=== PATIENT | female | born 1955 | race Caucasian/White ===

== ENCOUNTER → 2017-02-19 | Outpatient (CLI) | payer OTHER ==
[2017-02-19 12:01] LABS: Blood Urea Nitrogen 11 mg/dL (7-17); Non-African American GFR(MDRD) >60 (>60 ml/min/1.73 sqM)
--- NOTE | 2017-02-19 13:52 | CT ---
EXAMINATION TYPE: CT ChestAbdPelvis w con DATE OF EXAM: 02/19/2017 COMPARISON: 11/21/2016 and 11/12/2016 HISTORY: Patient has no complaints at time of service. Follow up study for known lymphoma (ovarian). CT DLP: 1756 mGycm CONTRAST: CT scan of the chest, abdomen and pelvis is performed with Oral Contrast and with IV Contrast, patien t injected with 100 mL of Omnipaque 300. CT Chest: LUNGS: The lungs are clear and free of infiltrate or atelectasis. Calcified granuloma left lower lobe . No pulmonary nodule or mass is detected. No pleural effusion or CT evidence of interstitial lung d isease. MEDIASTINUM: Thoracic aorta is of normal caliber. The heart is not enlarged. No evidence for media stinal mass or adenopathy. HILAR STRUCTURES: No evidence for mass. No hilar adenopathy is appreciated. OTHER: No significant abnormality. CONTRAST CT ABDOMEN AND PELVIS FINDINGS: LIVER/GB: There is evidence of hepatomegaly. Mild hepatic steatosis. No hepatic lesions are demonstra nick. Cholecystectomy clips are identified. PANCREAS: No inflammation. No distinct mass. SPLEEN: Small hypoattenuating lesions within the spleen described on outside examination are not repr oducible at this time. Small splenule is noted. ADRENALS: No nodule. No thickening. KIDNEYS/BLADDER: No hydronephrosis. No nephrolithiasis. No disctinct renal mass. BOWEL: Normal appendix. Normal bowel caliber. No inflammation. Moderately severe sigmoid diverticul osis without diverticulitis at this time. GENITAL ORGANS: No gross abnormality. LYMPH NODES: Epiphrenic adenopathy persists although is much smaller in size with short axis measurem ent of 7 mm versus 1.2 cm. Periportal adenopathy is also improved with short axis measurement of a ly mph node measuring 7.5 mm versus 1.3 cm previously. Lymph node masses within the small bowel mesenter y are significantly improved. Currently the findings appear to be related to underlying fibrosis arredondo navi soft tissue does measure 6.1 x 5.2 cm versus 10.8 x 8.5 cm conglomerate mass seen previously. Add itional smaller adjacent masses are all less than 1 cm on the current study. There is also improvemen t in para-aortic adenopathy with several remaining lymph nodes measuring less than 1 cm versus greate r than 1 cm previously. There is no inguinal adenopathy or iliac chain adenopathy at this time. AORTA: No significant abnormality. OSSEOUS STRUCTURES: No significant abnormality is seen. OTHER: No significant additional abnormality is seen. IMPRESSION: 1. Significant interval improvement in retroperitoneal and mesenteric adenopathy as discussed above. 2. Hepatomegaly with hepatic steatosis. 3. Resolution of previously noted splenic lesions.
== END | disposition home or self-care (01) ==
LOC: RADCTMAIN 11:12
PROVIDERS: ATTEND Internal Medicine Hematology & Oncology
DX: C82.03 Follicular lymphoma grade I, intra-abdominal lymph nodes (principal); R59.9 Enlarged lymph nodes, unspecified; R16.0 Hepatomegaly, not elsewhere classified
CPT/HCPCS: 82565; 84520; 71260; 74177; 36415; Q9967

== ENCOUNTER → 2017-05-12 | Outpatient (CLI) | payer OTHER ==
[2017-05-12 10:55] LABS: Blood Urea Nitrogen 10 mg/dL (7-17); Non-African American GFR(MDRD) >60 (>60 ml/min/1.73 sqM)
== END | disposition home or self-care (01) ==
LOC: LABWHC1 09:59
PROVIDERS: ATTEND Physical Medicine & Rehabilitation
DX: Z01.818 Encounter for other preprocedural examination (principal); M48.062 Spinal stenosis, lumbar region with neurogenic claudication; M43.16 Spondylolisthesis, lumbar region; M47.817 Spondylosis without myelopathy or radiculopathy, lumbosacral region; E11.9 Type 2 diabetes mellitus without complications; K21.9 Gastro-esophageal reflux disease without esophagitis; C85.90 Non-Hodgkin lymphoma, unspecified, unspecified site
CPT/HCPCS: 36415; 82565; 84520

== ENCOUNTER → 2017-08-02 | Outpatient (CLI) | payer OTHER ==
--- NOTE | 2017-08-02 10:33 | PE ---
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 Patient has history of chemotherapy comp leted April 30, 2016. New abnormal CT. TECHNIQUE: Following the intravenous administration of 13.39 mCi of F-18 FDG, whole body images are performed from the skull base to the midthigh. Images are reviewed on the computer in the coronal, a xial, and sagittal planes. Reconstructed rotating images are created on independent workstation and reviewed on the computer. A noncontrast CT is performed in conjunction with the PET scan. SCAN: Subsequent Scan FINDINGS: SKULL BASE AND NECK: No suspicious hypermetabolic uptake is present. CHEST, MEDIASTINUM, AND HILAR REGION: No suspicious hypermetabolic uptake is seen. ABDOMEN AND PELVIS: No suspicious hypermetabolic uptake is present. OSSEOUS STRUCTURES: No suspicious hypermetabolic uptake. OTHER CT: Coronary artery calcification is redemonstrated which is noted marker for coronary artery d isease. Some calcified left hilar lymph nodes are again seen with 1 cm subpleural calcified nodule or granulo ma lateral lung base axial image 101 redemonstrated. Findings are consistent with product of old gran ulomatous disease. Cholecystectomy clips are redemonstrated. Liver is diffusely isodense to slightly hypodense relative to spleen consistent with fatty infiltration. Prominent right hepatic lobe is unchanged from prior st udies. There is persistent abnormal matted soft tissue in the central mesentery axial image 164, this is imp roved in from original CT June 14, 2016 where there was well-defined multiple large lymph nodes. N o suspicious hypermetabolic uptake is seen at this level. There are stable prominent but subcentimete r retroperitoneal lymph nodes without suspicious abnormal hypermetabolic uptake. There are scattered diverticula throughout the colon most prominent in the sigmoid colon. Uterus is surgically absent. There is multilevel spurring in the thoracolumbar spine. There is facet arthropathy lower lumbar leve ls. IMPRESSION: PET CT findings are consistent with successfully treated mesenteric abdominal lymphoma. T here is persistent abnormal soft tissue at this level but no suspicious abnormal hypermetabolic uptak e to suggest active neoplasm.
== END | disposition home or self-care (01) ==
LOC: RADPETMAIN 07:44
PROVIDERS: ATTEND Internal Medicine Hematology & Oncology
DX: C82.03 Follicular lymphoma grade I, intra-abdominal lymph nodes (principal); Z92.21 Personal history of antineoplastic chemotherapy
CPT/HCPCS: 78815; A9552

== ENCOUNTER → 2018-04-30 | Day surgery (SDC) | payer OTHER ==
[~2018-04-30] MED LIST: ALPRAZolam 0.25 MG TAB PO STA; HYDROcodone/APAP 5-325MG 1 EACH TAB PO PRN; HYDROmorphone 1 MG/ML 1 ML SYRINGE IVP STA
[2018-04-30 09:44] LABS: Mean Platelet Volume 7.3; Platelet Count 127 k/uL (150-450)
[2018-04-30 09:47] VITALS: RESP 16; TEMP 98.1
[2018-04-30 09:48] LABS: INR 1.3 (<1.2); Prothrombin Time 12.9 sec (9.0-12.0)
--- NOTE | 2018-04-30 11:41 | US ---
EXAMINATION TYPE: US biopsy liver DATE OF EXAM: 04/30/2018 HISTORY: Abnormal CT dated 04/07/2018. History of lymphoma. Patient is scheduled for colonoscopy. PROCEDURE: Maximal barrier technique was utilized. After informed consent and preprocedural timeout, the skin overlying a suitable path to the liver was localized using ultrasound, the skin was preppe d and draped. Ultrasound was utilized with sterile technique. 15 cc of lidocaine was used for local a nesthesia. Under direct ultrasound guidance, an 18-gauge needle was advanced into the 1 cm right hepatic lobe le arnol and 4 core biopsies were obtained. Hemostasis was achieved. here was no immediate complication and patient remained in stable condition. Postprocedure imaging demonstrates no subcapsular hematom a and air within the lesion at the site of biopsy. Specimen submitted in formalin to Pathology. IMPRESSION: STATUS POST ULTRASOUND GUIDED CORE BIOPSY OF A HYPOECHOIC APPROXIMATELY 1 CM RIGHT HEPATI C LOBE LESION, PATHOLOGY PENDING. PERFORMED BY THE UNDERSIGNED.
[2018-04-30 11:54] LABS: Glucose,Whole Blood 326 mg/dL (75-99)
[2018-04-30 15:06] VITALS: BP 129/60; PULSE 74
== END | disposition home or self-care (01) ==
LOC: RADPROMAIN 08:53
PROVIDERS: ATTEND Internal Medicine Hematology & Oncology
DX: C82.03 Follicular lymphoma grade I, intra-abdominal lymph nodes (principal); K74.60 Unspecified cirrhosis of liver; K75.81 Nonalcoholic steatohepatitis (NASH)
CPT/HCPCS: 85049; 85610; 88313 ×3; 88307; 36415; 47000; 76942; J1170

== ENCOUNTER 2018-05-05 06:44 | Day surgery (SDC) | payer OTHER ==
[2018-05-01 14:44] VITALS: BMI 32.8
[~2018-05-05 06:44] MED LIST changes: -ALPRAZolam 0.25 MG TAB PO STA; -HYDROcodone/APAP 5-325MG 1 EACH TAB PO PRN; -HYDROmorphone 1 MG/ML 1 ML SYRINGE IVP STA; +LACTATED RINGERS 1,000 ML IV SCH; +LIDOCAINE 1% 20 ML VIAL (10MG/ML) FOR IV START INTRADERMA PRN; +MIDAZOLAM (PF) 2 MG/2 ML VIAL IV PRN
[2018-05-05] MEDS ORDERED: LACTATED RINGERS 1,000 ML IV ONE (07:11)
[2018-05-05 07:21] VITALS: TEMP 98
[2018-05-05 07:32] LABS: Glucose,Whole Blood 307 mg/dL (75-99)
[2018-05-05] MEDS ORDERED: INSULIN ASPART 100 UNIT/ML 1 ML 10 ML VIAL SQ ONE ×2 (07:37→07:43)
[2018-05-05] MEDS ORDERED: PROPOFOL 10 MG/ML 20 ML VIAL IV ONE (07:59)
[2018-05-05 08:36] VITALS: RESP 18
--- NOTE | 2018-05-05 08:39 | P.PCN ---
Date of Procedure: 05/05/18 Procedure(s) Performed: Procedure: Total colonoscopy. Preoperative diagnosis: Abnormal CT of the abdomen. Postoperative diagnosis: Sigmoid diverticulosis with no evidence of acute diverticulitis, strictures, significant polyps or cancer. Preparation: HalfLytely prep. Sedation: Was provided by anesthesia Brief clinical history: The patient is a 62-year-old female who is scheduled for this evaluation because of abnormality on the sigmoid noted on computed tomography scan. The patient has history of non-Hodgkin's lymphoma and ovarian cancer and there were 2 new spots on her liver on a recent CT raising the possibility of metastatic liver disease. With the abnormality on the CT a source in the sigmoid colon was considered. The patient had several colonoscopies over the years, the last was around 3 or 4 years ago. She has no new abdominal complaints or bleeding. Procedure: With the patient on her left lateral decubitus position and after informed consent and adequate sedation, the perianal area was inspected and it did not show any fissures or fistulas. There were no masses felt on digital rectal examination. The Olympus CFH 190L videocolonoscope was then inserted in the rectum in the usual fashion and advanced to the cecum. There were a few diverticular orifices seen scattered in the sigmoid but I saw no evidence of acute diverticulitis or strictures. The mucosa appeared healthy. No significant polyps or tumors were seen. I retroflexed the endoscope in the rectum before the endoscope was withdrawn. The patient tolerated the procedure well. Plan: I summarized the findings to the patient. She will follow-up with you as planned. Further plans based on her course.
[2018-05-05 09:04] VITALS: BP 123/64; PULSE 68
[2018-05-05 09:22] LABS: Glucose,Whole Blood 239 mg/dL (75-99)
== END 2018-05-05 09:41 | disposition home or self-care (01) ==
LOC: ORWHC2ENDO 06:44
DX: K57.30 Diverticulosis of large intestine without perforation or abscess without bleeding (principal); R93.2 Abnormal findings on diagnostic imaging of liver and biliary tract; E11.9 Type 2 diabetes mellitus without complications; I48.91 Unspecified atrial fibrillation; E78.5 Hyperlipidemia, unspecified; I10 Essential (primary) hypertension; M06.9 Rheumatoid arthritis, unspecified; E07.9 Disorder of thyroid, unspecified; F32.9 Major depressive disorder, single episode, unspecified; K21.9 Gastro-esophageal reflux disease without esophagitis; Z85.43 Personal history of malignant neoplasm of ovary; Z85.72 Personal history of non-Hodgkin lymphomas; Z79.01 Long term (current) use of anticoagulants; Z79.890 Hormone replacement therapy; Z79.4 Long term (current) use of insulin; Z79.899 Other long term (current) drug therapy; Z88.0 Allergy status to penicillin; Z91.048 Other nonmedicinal substance allergy status; Z88.1 Allergy status to other antibiotic agents; Z96.653 Presence of artificial knee joint, bilateral
CPT/HCPCS: 45378; J2704

== ENCOUNTER → 2018-10-13 | Outpatient (CLI) | payer MEDICARE, OTHER ==
[2018-10-13 14:08] LABS: Blood Urea Nitrogen 16 mg/dL (7-17)
--- NOTE | 2018-10-13 15:24 | CT ---
EXAMINATION TYPE: CT ChestAbdPelvis w con DATE OF EXAM: 10/13/2018 COMPARISON: 04/07/2018 HISTORY: lymphoma, observe for mets CT DLP: 1548.20 mGycm Automated exposure control for dose reduction was used. CONTRAST: CT scan of the chest, abdomen and pelvis is performed with Oral Contrast and with IV Contrast, patien t injected with 100 mL of Isovue 300. FINDINGS: LUNGS: The lungs are grossly clear, there is no concerning parenchymal mass or nodule identified. T here is no pleural effusion or pneumothorax seen. The tracheobronchial tree is patent. Calcified gra nuloma within the left lung is stable. MEDIASTINUM: There are no greater than 1 cm hilar or mediastinal lymph nodes. No pericardial effusi on is seen. Stable calcified lymph nodes in the hilum. No pathologic-sized lymph nodes. Coronary paige ry calcification noted. OTHER: 3 mm left breast nodule. Recommend mammogram.. LIVER/GB: There is reduced in attenuation correlate for hepatic steatosis. Previous cholecystectomy c hanges are noted. No definite intrahepatic lesion. PANCREAS: No significant abnormality is seen. SPLEEN: Accessory spleen noted. ADRENALS: No significant abnormality is seen. KIDNEYS: Tiny hypodensities too small to characterize bilaterally are stable. BOWEL: Bowel gas pattern nonspecific. Changes of diverticulosis noted. LYMPH NODES: The ill-defined attenuation within the mesentery which previously measured 7 x 6.3 cm is stable relative the previous exam. No new adenopathy. Surgical clips are noted. Shotty adenopathy in the gastrohepatic ligament is stable. OSSEOUS STRUCTURES: Hypertrophic and degenerative changes of the vertebral column. Severe facet arthr opathy L4-5 with grade 1 anterolisthesis. Arthropathy of the right shoulder. OTHER: Aorta of normal caliber. No free fluid. Atherosclerotic changes noted. IMPRESSION: 1. Hepatic lesions previously described are not identified on today's exam and likely related to the heterogeneous pattern of the liver which could been the basis of hepatic steatosis correlate with gwen er enzymes to exclude other etiologies. 2. Stability and morphology of the matted central mesenteric lymph nodes that demonstrated no abnorma l uptake on previous PET scan of 08/02/2017.
== END | disposition home or self-care (01) ==
LOC: RADCTMAIN 13:08
PROVIDERS: ATTEND Internal Medicine Hematology & Oncology
DX: Z03.89 Encounter for observation for other suspected diseases and conditions ruled out (principal); C82.03 Follicular lymphoma grade I, intra-abdominal lymph nodes; R10.9 Unspecified abdominal pain; Z88.0 Allergy status to penicillin; Z88.1 Allergy status to other antibiotic agents
CPT/HCPCS: 82565; 84520; 71260; 74177; 36415; Q9967

== ENCOUNTER → 2019-01-15 | Outpatient (CLI) | payer MEDICARE ==
--- NOTE | 2019-01-15 15:43 | CT ---
EXAMINATION TYPE: CT ChestAbdPelvis w con DATE OF EXAM: 01/15/2019 COMPARISON: 10/13/2018 HISTORY: abdominal pain, hx of lymphoma CT DLP: 1790.7 mGycm CONTRAST: CT scan of the chest, abdomen and pelvis is performed with Oral Contrast and with IV Contrast, patien t injected with 100 mL of Isovue 300. CT Chest: LUNGS: The lungs are clear and free of infiltrate or atelectasis. No pulmonary nodule or mass is det ected. Stable calcified granuloma left lower lobe. No pleural effusion or CT evidence of interstitia l lung disease. MEDIASTINUM: Thoracic aorta is of normal caliber. The heart is not enlarged. No evidence for media stinal mass or adenopathy. HILAR STRUCTURES: No evidence for mass. No hilar adenopathy is appreciated. OTHER: No significant abnormality. CONTRAST CT ABDOMEN AND PELVIS FINDINGS: LIVER/GB: No calcified gallstones. No space occupying hepatic lesion. Biliary tree is of normal ca liber. PANCREAS: No inflammation. No distinct mass. SPLEEN: No splenic enlargement. No lesion seen. ADRENALS: No nodule. No thickening. KIDNEYS/BLADDER: No hydronephrosis. No nephrolithiasis. No distinct renal mass. BOWEL: Mild inflammatory change about the sigmoid colon felt to reflect mild diverticulitis without p erforation or abscess. Severe sigmoid diverticulosis noted. GENITAL ORGANS: No gross abnormality. LYMPH NODES: Subcentimeter lymph nodes in the region of the yamileth hepatis are stable. Ill-defined and nodular area of abnormal attenuation within the small bowel mesentery to the right of midline curren tly measures 4.8 x 3.4 cm versus 7.0 x 6.3 cm. AORTA: No significant abnormality. OSSEOUS STRUCTURES: Hypertrophic and degenerative changes of the vertebral column. Severe facet arth ropathy L4-5 with grade 1 anterolisthesis. Arthropathy of the right shoulder. OTHER: No significant additional abnormality is seen. IMPRESSION: 1. Ill-defined and nodular area of abnormal attenuation within the small bowel mesentery to the right of midline currently measures 4.8 x 3.4 cm versus 7.0 x 6.3 cm. 2. Correlate for very mild changes of sigmoid diverticulitis.
== END | disposition home or self-care (01) ==
LOC: RADCTMAIN 13:36
PROVIDERS: ATTEND Internal Medicine Hematology & Oncology
DX: K57.32 Diverticulitis of large intestine without perforation or abscess without bleeding (principal); C82.03 Follicular lymphoma grade I, intra-abdominal lymph nodes; Z88.0 Allergy status to penicillin; Z88.1 Allergy status to other antibiotic agents
CPT/HCPCS: 82565; 84520; 71260; 74177; 36415; Q9967

== ENCOUNTER → 2019-10-15 | Outpatient (CLI) | payer MEDICARE ==
--- NOTE | 2019-10-15 17:14 | CT ---
EXAMINATION TYPE: CT ChestAbdPelvis w con DATE OF EXAM: 10/15/2019 INDICATION: Follow up mesenteric lymphoma, epigastric pain and fullness COMPARISON: 01/21/2019 CT DLP: 1829.9 mGycm CONTRAST: Performed with Oral Contrast and with IV Contrast, patient injected with 100 mL of Isovue 300. TECHNIQUE: Axial images at 5 mm thick sections. Reconstructed images in the coronal plane. Delayed images through the kidneys. FINDINGS: CT CHEST: Portion of the thyroid visualized is small. There is a large calcified 1.2 cm granuloma along the periphery of the left lung base. No suspicious lung nodules are evident. No enlarged mediastinal or hilar adenopathy is evident. Scattered small lymph nodes are within the me diastinum. The ascending aorta diameter at the level of the main pulmonary artery is 3.2 cm. The main pulmonary artery diameter at the bifurcation is 2.[address] ABDOMEN: Liver: Normal Spleen: Small splenule is adjacent to the spleen. Pancreas: Normal Adrenal glands: The adrenal glands are normal. Gallbladder: Surgically absent Kidneys: No masses are evident. No hydronephrosis is present. No cysts are present. Delayed images were obtained through the kidneys, which remain unremarkable. Aorta: Vascular calcification is within the aorta. Inferior vena cava: Normal. CT PELVIS: Fecal debris is throughout the colon. Small bowel loops distended with oral contrast appear normal. S cattered diverticuli are within the sigmoid colon. Appendix: Normal as visualized. Urinary bladder: Normal. Genitourinary structures: Uterus and ovaries are not identified. Osseous structures: No suspicious lytic or sclerotic lesions. Lymphadenopathy: No enlarged mesenteric lymphadenopathy is evident. Small density superior to the morales creatic head is stable there is vague increased density within the mesentery at the pelvic inlet. Ser ies 4 image 77. This area is less consolidated than before. Some underlying adenopathy may be present . The individual lymph nodes are not enlarged in this region. This area measures approximately 4.4 x 3.5 cm. This is smaller than the measurement of 4.8 x 3.4 cm. IMPRESSIONS: 1. Improving density within the mesentery. No suspicious enlarging or new lymphadenopathy is evident.
== END | disposition home or self-care (01) ==
LOC: RADCTMAIN 14:22
PROVIDERS: ATTEND Internal Medicine Hematology & Oncology
DX: K66.8 Other specified disorders of peritoneum (principal); C56.9 Malignant neoplasm of unspecified ovary; C82.03 Follicular lymphoma grade I, intra-abdominal lymph nodes; Z88.0 Allergy status to penicillin; Z88.1 Allergy status to other antibiotic agents
CPT/HCPCS: 82565; 84520; 71260; 74177; 36415; Q9967

== ENCOUNTER → 2019-11-22 | Outpatient (CLI) | payer MEDICARE ==
[2019-11-22 14:34] LABS: HCT 41.4 % (34.0-46.0); HGB 12.9 gm/dL (11.4-16.0); MCH 29.4 pg (25.0-35.0); MCHC 31.2 g/dL (31.0-37.0); MCV 94.2 fL (80.0-100.0); Mean Platelet Volume 7.8; Platelet Count 177 k/uL (150-450); RBC 4.39 m/uL (3.80-5.40); RDW 15.4 % (11.5-15.5); WBC 7.6 k/uL (3.8-10.6)
[2019-11-22 14:47] LABS: Appearance,Urine Clear (Clear); Bacteria,Urine Rare /hpf; Bilirubin,Urine Negative (Negative); Blood,Urine Negative (Negative); Color,Urine Yellow; Glucose,Urine (UA) Negative (Negative); Ketones,Urine Negative (Negative); Leukocyte Esterase,Urine Small (Negative); Mucus,Urine Rare /hpf; Nitrite,Urine Negative (Negative); Protein,Urine Negative (Negative); RBC,Urine <1 /hpf (0-5); Specific Gravity,Urine 1.017 (1.001-1.035); Squamous Epithelial Cell,Urine <1 /hpf (0-4); Urobilinogen,Urine <2.0 mg/dL (<2.0); WBC,Urine 3 /hpf (0-5)
[2019-11-22 21:37] LABS: Cyclic Citrull Pep IgG Unit 0.5 U/mL; Cyclic Citrullinated Pep IgG NEGATIVE (NEGATIVE)
[2019-11-22 21:38] LABS: African American GFR (CKD) 77.2 (60.0-200.0); Albumin 4.5 g/dL (3.80-4.90); Albumin/Globulin Ratio 1.61 (1.60-3.17); Anion Gap 9.2 mmol/L (4.00-12.00); BUN/Creat Ratio 21.11 Ratio (12.00-20.00); C Reactive Protein 0.8 mg/dL (0.0-0.8); Calcium 9.6 mg/dL (8.7-10.3); Carbon Dioxide 32.8 mmol/L (21.6-31.8); Globulin 2.8 g/dL (1.6-3.3); Non-African American GFR(CKD) 66.6 (60.0-200.0); Potassium 4.1 mmol/L (3.5-5.5); Total Bilirubin 0.4 mg/dL (0.3-1.2); Total Protein 7.3 g/dL (6.2-8.2)
[2019-11-22 21:45] LABS: T4, Free (Free Thyroxine) 1.4 ng/dL (0.80-1.80)
[2019-11-22 22:08] LABS: Erythrocyte Sedimentation Rate 41 mm/hr (0-20)
== END | disposition home or self-care (01) ==
LOC: LABWHC1 13:51
PROVIDERS: ATTEND Internal Medicine Rheumatology
DX: M25.50 Pain in unspecified joint (principal); R53.82 Chronic fatigue, unspecified
CPT/HCPCS: 36415; 80053; 81001; 84439; 84443; 85027; 85652; 86038; 86140; 86200; 86431

== ENCOUNTER → 2019-11-22 | Outpatient (CLI) | payer MEDICARE ==
--- NOTE | 2019-11-22 14:54 | XR ---
Lumbosacral spine HISTORY: Low back pain, M 47.896 6 views of lumbosacral spine correlated to CT scan 10/15/2019 There is a mild spinal curvature. Lumbar vertebral bodies show preserved height. There is anterolisth esis grade 1 L4-5, L3-4. May be minimal lessening of listhesis of 1 to 2 mm on extension view. Loss o f disc height present L3-4, L4-5 and L5-S1, there is multilevel spondylosis. Sclerosis present in the posterior elements of the lower lumbar spine. Bone mineralization is reduced. Surgical clips are pre sent in the right upper quadrant. IMPRESSION: Degenerative disc disease, osteopenia, facet arthropathy, spinal curvature.
== END | disposition home or self-care (01) ==
LOC: RADXRMAIN 13:23
PROVIDERS: ATTEND Neurological Surgery
DX: M51.36 Other intervertebral disc degeneration, lumbar region (principal); M85.80 Other specified disorders of bone density and structure, unspecified site; M46.96 Unspecified inflammatory spondylopathy, lumbar region; M43.9 Deforming dorsopathy, unspecified; M25.50 Pain in unspecified joint
CPT/HCPCS: 72110

== ENCOUNTER → 2019-11-24 | Outpatient (CLI) | payer MEDICARE ==
[2019-11-24 12:55] LABS: ABG Base Excess 7.9 mmol/L; ABG HCO3 33 mmol/L (21-25); ABG Oxygen Saturation 93.5 % (94-97); ABG PCO2 51 mmHg (35-45); ABG PH 7.41 (7.35-7.45); ABG PO2 67 mmHg (83-108); ABG TCO2 34 mmol/L (19-24); Allen Test Performed? Yes
== END | disposition home or self-care (01) ==
LOC: LABWHC1 12:28
PROVIDERS: ATTEND Internal Medicine Critical Care Medicine
DX: R06.02 Shortness of breath (principal)
CPT/HCPCS: 36600; 82805

== ENCOUNTER → 2020-05-08 | Outpatient (CLI) | payer MEDICARE ==
--- NOTE | 2020-05-09 08:35 | CT ---
EXAMINATION TYPE: CT ChestAbdPelvis w con DATE OF EXAM: 05/08/2020 COMPARISON: CT October 15, 2019 and older CTs. HISTORY: Follow up for lymphoma diagnosed August 2016 in the mesentery, shortness of breath and epigas tric abdominal pain. Completed chemotherapy in 2018. CT DLP: 2329.1 mGycm. Automated Exposure Control for Dose Reduction was Utilized. CONTRAST: CT scan of the thorax, abdomen and pelvis is performed with IV Contrast, patient injected with 100ml mL of Isovue 300. FINDINGS: LUNGS: Stable 9 mm peripheral left basilar calcified nodule or granuloma at axial image 42. No suspic ious new noncalcified nodules or masses. Stable mild bibasilar linear scarring and/or atelectasis. Th ere is no pleural effusion or pneumothorax seen. The tracheobronchial tree is patent. MEDIASTINUM: There are no greater than 1 cm hilar or mediastinal lymph nodes. No cardiomegaly or pe ricardial effusion is seen. Stable small size thyroid is redemonstrated. Coronary artery calcificati on again seen. LIVER/GB: Cholecystectomy clips redemonstrated. Liver is diffusely low-density consistent with fatty infiltration. Size stable and within normal limits. PANCREAS: No significant abnormality is seen. SPLEEN: Size stable and upper limits of normal. ADRENALS: No significant abnormality is seen. KIDNEYS: Symmetric cortical medullary uptake and excretion without hydronephrosis. BOWEL: Oral contrast reaches level of mid transverse colon. No suspicious small large bowel dilatatio n. Sigmoid colonic diverticula. No CT evidence for acute diverticulitis. GENITAL ORGANS: Uterus surgically absent. LYMPH NODES: Few prominent but subcentimeter lymph nodes throughout the lower abdominal and upper pel pema mesentery just right of midline near axial images 84 through 92 not significantly changed from mo st recent CT. Lianet mesentery with prominent but subcentimeter lymph nodes in the right mid abdomen a xial image 79 show no significant interval change from axial image 77 most recent prior. No new great er than 1 cm lymph nodes are present. Stable prominent but subcentimeter lymph nodes throughout the r etroperitoneum OSSEOUS STRUCTURES: Slight scoliotic curvature with multilevel spurring in the spine. Grade 1 anterol isthesis L4 on L5. OTHER: No significant additional abnormality is seen. IMPRESSION: Stable lianet mesentery and subcentimeter lymph nodes in the abdomen and upper pelvis just right of midline from most recent CT. No new or enlarging lymph nodes noted.
== END | disposition home or self-care (01) ==
LOC: RADCTMAIN 13:47
PROVIDERS: ATTEND Internal Medicine Hematology & Oncology
DX: C82.03 Follicular lymphoma grade I, intra-abdominal lymph nodes (principal); R93.3 Abnormal findings on diagnostic imaging of other parts of digestive tract; Z88.0 Allergy status to penicillin; Z88.1 Allergy status to other antibiotic agents
CPT/HCPCS: 82565; 84520; 71260; 74177; 36415; Q9967

== ENCOUNTER 2020-07-24 10:56 | Observation (INO) | payer MEDICARE ==
--- NOTE | 2020-07-24 11:28 | ED ---
General Adult HPI - General Chief complaint: Shortness of Breath Stated complaint: SOB Time Seen by Provider: 07/24/20 11:13 Source: patient, RN notes reviewed Mode of arrival: ambulatory Limitations: no limitations - History of Present Illness Initial comments: Patient is a pleasant 64-year-old female presenting to the emergency Department with chest discomfort and dyspnea. Patient is somewhat a poor historian and does need to be redirected frequently. Symptoms have been going on for at least one week. Patient has a difficult time describing her chest discomfort. Discomfort is left sternal region. Patient does feel somewhat short of breath. Rare cough. No fevers. Patient does have history of atrial fibrillation. Patient feels somewhat achy throughout. Patient does have lupus. Patient also has history of follicular lymphoma. Patient states this is in remission at this time. Patient states she did fall on her shoulder a few weeks ago. - Related Data Home Medications Medication Instructions Recorded Confirmed Famotidine 20 mg PO HS 04/20/18 07/24/20 Flecainide Acetate [Tambocor] 100 mg PO Q12HR 04/20/18 07/24/20 INSULIN LISPRO (humaLOG) [humaLOG] 20 units SQ AC-TID 04/20/18 07/24/20 Insulin Glargine [Lantus] 50 unit SQ HS 04/20/18 07/24/20 Levothyroxine Sodium [Synthroid] 88 mcg PO DAILY 04/20/18 07/24/20 Losartan Potassium 50 mg PO HS 04/20/18 07/24/20 Rivaroxaban [Xarelto] 20 mg PO DAILY@1700 04/20/18 07/24/20 Venlafaxine HCl ER [Effexor Xr] 37.5 mg PO DAILY 04/20/18 07/24/20 Albuterol Inhaler [Ventolin Hfa 2 puff INHALATION RT-QID PRN 07/24/20 07/24/20 Inhaler] Atorvastatin [Lipitor] 10 mg PO HS 07/24/20 07/24/20 Metoprolol Tartrate [Lopressor] 25 mg PO BID 07/24/20 07/24/20 Multivit-Min/FA/Lycopen/Lutein 1 tab PO W/SUPPER 07/24/20 07/24/20 [Centrum Silver Tablet] Pioglitazone [Actos] 30 mg PO DAILY@1700 07/24/20 07/24/20 Allergies Allergy/AdvReac Type Severity Reaction Status Date / Time Penicillins Allergy Rash/Hives Verified 07/24/20 12:15 Tetracyclines Allergy Rash/Hives Verified 07/24/20 12:15 nickel AdvReac metal taste Verified 07/24/20 12:15 Review of Systems ROS Statement: Those systems with pertinent positive or pertinent negative responses have been documented in the HPI. ROS Other: All systems not noted in ROS Statement are negative. Constitutional: Denies: fever Eyes: Denies: eye pain ENT: Denies: ear pain Respiratory: Reports: as per HPI, dyspnea Cardiovascular: Reports: as per HPI, chest pain Endocrine: Reports: fatigue Gastrointestinal: Denies: abdominal pain Genitourinary: Denies: dysuria Musculoskeletal: Reports: back pain (Chronic and unchanged) Skin: Denies: rash Neurological: Denies: weakness Past Medical History Past Medical History: Atrial Fibrillation, COPD, Diabetes Mellitus, Hyperlipidemia, Hypertension Additional Past Medical History / Comment(s): hx ovarian cancer and leukemia, non-hodgkins lymphoma "2 spots of liver" hx elevated liver, enzymes, lupus, back pain History of Any Multi-Drug Resistant Organisms: None Reported Past Surgical History: Orthopedic Surgery Additional Past Surgical History / Comment(s): lokesh knee replacement, carpal tunnel lokesh, lokesh. breast reduction to remove cyst, lt shoulder repair Past Anesthesia/Blood Transfusion Reactions: No Reported Reaction Additional Past Anesthesia/Blood Transfusion Reaction / Comment(s): hx: blood transfusions no reaction Past Psychological History: Depression Smoking Status: Never smoker Past Alcohol Use History: Rare Past Drug Use History: None Reported - Past Family History Mother Family Medical History: No Reported History General Exam Limitations: no limitations General appearance: alert, in no apparent distress Head exam: Present: normocephalic Eye exam: Present: normal appearance Neck exam: Present: normal inspection Respiratory exam: Present: normal lung sounds bilaterally, chest wall tenderness (Mild tenderness anterior chest) Cardiovascular Exam: Present: regular rate, normal rhythm Expanded Peripheral pulses: 2+: Radial (R), Radial (L), Posterior Tibialis (R), Posterior Tibialis (L) GI/Abdominal exam: Present: soft. Absent: tenderness Extremities exam: Present: normal inspection. Absent: pedal edema, calf tenderness Neurological exam: Present: alert Psychiatric exam: Present: normal affect, normal mood Skin exam: Present: normal color Course Vital Signs 07/24/20 07/24/20 11:07 11:46 Temperature 98.1 F Pulse Rate 75 Respiratory 18 18 Rate Blood Pressure 110/55 O2 Sat by Pulse 95 Oximetry EKG Findings - EKG Comments: EKG Findings:: Normal sinus rhythm 78. W[place] 188. Every ROS 102. QT 376. QTc 428. Normal axis. Normal QRS. No acute ST change. Medical Decision Making - Medical Decision Making Patient reevaluated and resting comfortably in bed. Patient requests Tylenol for headache or patient states she also did strike her head when she fell a couple of weeks ago. Head CT was done and reported as no acute abnormality. Patient and family updated on results and plan. Case was discussed in detail with Dr. Grant, will admit covering for Dr. Campa. - Lab Data Result diagrams: 07/24/20 11:22 07/24/20 11:22 Lab Results 07/24/20 07/24/20 07/24/20 Range/Units 11:22 11:22 11:22 WBC 6.8 (3.8-10.6) k/uL RBC 4.47 (3.80-5.40) m/uL Hgb 13.8 (11.4-16.0) gm/dL Hct 42.3 (34.0-46.0) % MCV 94.5 (80.0-100.0) fL MCH 30.8 (25.0-35.0) pg MCHC 32.7 (31.0-37.0) g/dL RDW 13.9 (11.5-15.5) % Plt Count 196 (150-450) k/uL MPV 6.9 Neutrophils % 70 % Lymphocytes % 17 % Monocytes % 6 % Eosinophils % 3 % Basophils % 1 % Neutrophils # 4.8 (1.3-7.7) k/uL Lymphocytes # 1.1 (1.0-4.8) k/uL Monocytes # 0.4 (0-1.0) k/uL Eosinophils # 0.2 (0-0.7) k/uL Basophils # 0.0 (0-0.2) k/uL PT 11.0 (9.0-12.0) sec INR 1.0 (<1.2) APTT 31.6 H (22.0-30.0) sec D-Dimer 0.34 (<0.60) mg/L FEU Sodium 138 (137-145) mmol/L Potassium 4.0 (3.5-5.1) mmol/L Chloride 96 L (98-107) mmol/L Carbon Dioxide 36 H (22-30) mmol/L Anion Gap 6 mmol/L BUN 22 H (7-17) mg/dL Creatinine 0.71 (0.52-1.04) mg/dL Est GFR (CKD-EPI)AfAm >90 (>60 ml/min/1.73 sqM) Est GFR (CKD-EPI)NonAf 89 (>60 ml/min/1.73 sqM) Glucose 142 H (74-99) mg/dL Plasma Lactic Acid Isaac (0.7-2.0) mmol/L Calcium 9.6 (8.4-10.2) mg/dL Magnesium 1.7 (1.6-2.3) mg/dL Total Bilirubin 0.6 (0.2-1.3) mg/dL AST 26 (14-36) U/L ALT 33 (4-34) U/L Alkaline Phosphatase 105 (38-126) U/L Creatine Kinase 39 (30-135) U/L Troponin I (0.000-0.034) ng/mL NT-Pro-B Natriuret Pep pg/mL Total Protein 7.1 (6.3-8.2) g/dL Albumin 4.0 (3.5-5.0) g/dL Coronavirus (PCR) (Not Detectd) 07/24/20 07/24/20 07/24/20 Range/Units 11:22 11:22 11:22 WBC (3.8-10.6) k/uL RBC (3.80-5.40) m/uL Hgb (11.4-16.0) gm/dL Hct (34.0-46.0) % MCV (80.0-100.0) fL MCH (25.0-35.0) pg MCHC (31.0-37.0) g/dL RDW (11.5-15.5) % Plt Count (150-450) k/uL MPV Neutrophils % % Lymphocytes % % Monocytes % % Eosinophils % % Basophils % % Neutrophils # (1.3-7.7) k/uL Lymphocytes # (1.0-4.8) k/uL Monocytes # (0-1.0) k/uL Eosinophils # (0-0.7) k/uL Basophils # (0-0.2) k/uL PT (9.0-12.0) sec INR (<1.2) APTT (22.0-30.0) sec D-Dimer (<0.60) mg/L FEU Sodium (137-145) mmol/L Potassium (3.5-5.1) mmol/L Chloride (98-107) mmol/L Carbon Dioxide (22-30) mmol/L Anion Gap mmol/L BUN (7-17) mg/dL Creatinine (0.52-1.04) mg/dL Est GFR (CKD-EPI)AfAm (>60 ml/min/1.73 sqM) Est GFR (CKD-EPI)NonAf (>60 ml/min/1.73 sqM) Glucose (74-99) mg/dL Plasma Lactic Acid Isaac 1.1 (0.7-2.0) mmol/L Calcium (8.4-10.2) mg/dL Magnesium (1.6-2.3) mg/dL Total Bilirubin (0.2-1.3) mg/dL AST (14-36) U/L ALT (4-34) U/L Alkaline Phosphatase (38-126) U/L Creatine Kinase (30-135) U/L Troponin I <0.012 (0.000-0.034) ng/mL NT-Pro-B Natriuret Pep 96 pg/mL Total Protein (6.3-8.2) g/dL Albumin (3.5-5.0) g/dL Coronavirus (PCR) (Not Detectd) 07/24/20 Range/Units 11:36 WBC (3.8-10.6) k/uL RBC (3.80-5.40) m/uL Hgb (11.4-16.0) gm/dL Hct (34.0-46.0) % MCV (80.0-100.0) fL MCH (25.0-35.0) pg MCHC (31.0-37.0) g/dL RDW (11.5-15.5) % Plt Count (150-450) k/uL MPV Neutrophils % % Lymphocytes % % Monocytes % % Eosinophils % % Basophils % % Neutrophils # (1.3-7.7) k/uL Lymphocytes # (1.0-4.8) k/uL Monocytes # (0-1.0) k/uL Eosinophils # (0-0.7) k/uL Basophils # (0-0.2) k/uL PT (9.0-12.0) sec INR (<1.2) APTT (22.0-30.0) sec D-Dimer (<0.60) mg/L FEU Sodium (137-145) mmol/L Potassium (3.5-5.1) mmol/L Chloride (98-107) mmol/L Carbon Dioxide (22-30) mmol/L Anion Gap mmol/L BUN (7-17) mg/dL Creatinine (0.52-1.04) mg/dL Est GFR (CKD-EPI)AfAm (>60 ml/min/1.73 sqM) Est GFR (CKD-EPI)NonAf (>60 ml/min/1.73 sqM) Glucose (74-99) mg/dL Plasma Lactic Acid Isaac (0.7-2.0) mmol/L Calcium (8.4-10.2) mg/dL Magnesium (1.6-2.3) mg/dL Total Bilirubin (0.2-1.3) mg/dL AST (14-36) U/L ALT (4-34) U/L Alkaline Phosphatase (38-126) U/L Creatine Kinase (30-135) U/L Troponin I (0.000-0.034) ng/mL NT-Pro-B Natriuret Pep pg/mL Total Protein (6.3-8.2) g/dL Albumin (3.5-5.0) g/dL Coronavirus (PCR) Not Detected (Not Detectd) - Radiology Data Radiology results: report reviewed (Computed tomography scan of the brain reveals no acute process), image reviewed (Chest x-ray shows some cardiac megaly. No acute process otherwise) Disposition Clinical Impression: Chest pain, Dyspnea Disposition: ADMITTED IP TO THIS HOSP Is patient prescribed a controlled substance at d/c from ED?: No Referrals: Katarzyna Roger MD [Primary Care Provider] - 1-2 days Decision Time: 13:33
[2020-07-24 11:58] LABS: Basophils % (A) 1 %; Eosinophils # (A) 0.2 k/uL (0-0.7); Eosinophils % (A) 3 %; HCT 42.3 % (34.0-46.0); HGB 13.8 gm/dL (11.4-16.0); Lymphocytes # (A) 1.1 k/uL (1.0-4.8); Lymphocytes % (A) 17 %; MCH 30.8 pg (25.0-35.0); MCHC 32.7 g/dL (31.0-37.0); MCV 94.5 fL (80.0-100.0); Mean Platelet Volume 6.9; Monocytes # (A) 0.4 k/uL (0-1.0); Monocytes % (A) 6 %; Neutrophils # (A) 4.8 k/uL (1.3-7.7); Neutrophils % (A) 70 %; Platelet Count 196 k/uL (150-450); RBC 4.47 m/uL (3.80-5.40); RDW 13.9 % (11.5-15.5); WBC 6.8 k/uL (3.8-10.6)
--- NOTE | 2020-07-24 12:01 | XR ---
EXAMINATION TYPE: XR chest 2V DATE OF EXAM: 07/24/2020 COMPARISON: Chest CT May 08, 2020 HISTORY: History of lymphoma with difficulty breathing. TECHNIQUE: Frontal and lateral views of the chest are obtained. FINDINGS: There is no suspicious new focal air space opacity, pleural effusion, or pneumothorax seen . The cardiac silhouette size is stable and enlarged. Calcified nodule or granuloma peripheral left lung base redemonstrated. Multilevel spurring in the spine. IMPRESSION: Cardiomegaly without acute pulmonary process.
[2020-07-24 12:05] LABS: ALT 33 U/L (4-34); AST 26 U/L (14-36); African American GFR (CKD) >90 (>60 ml/min/1.73 sqM); Alkaline Phosphatase 105 U/L (38-126); Anion Gap 6 mmol/L; Blood Urea Nitrogen 22 mg/dL (7-17); Calcium 9.6 mg/dL (8.4-10.2); Carbon Dioxide 36 mmol/L (22-30); Chloride 96 mmol/L (98-107); Creatine Kinase 39 U/L (30-135); Glucose 142 mg/dL (74-99); Magnesium 1.7 mg/dL (1.6-2.3); Non-African American GFR(CKD) 89 (>60 ml/min/1.73 sqM); Sodium 138 mmol/L (137-145); Total Bilirubin 0.6 mg/dL (0.2-1.3); Total Protein 7.1 g/dL (6.3-8.2)
--- NOTE | 2020-07-24 12:06 | CT ---
EXAMINATION TYPE: CT brain wo con DATE OF EXAM: 07/24/2020 COMPARISON: None HISTORY: 64-year-old female head injury, trauma 2 days ago with weakness. TECHNIQUE: Examination was done in axial plane without intravenous contrast. Coronal and sagittal r econstructions performed. CT DLP: 1173.4 mGycm Automated exposure control for dose reduction was used. FINDINGS: There is no evidence of acute intracranial hemorrhage, acute ischemic changes, mass, mass-effect, or extra-axial fluid collection. There is no effacement of cerebral sulci or basal subarachnoid cister ns. There is no hydrocephalus. There is no midline shift. Carrasco-white matter distinction is preserv ed. Paranasal sinuses and mastoid air cells are well-pneumatized. Orbits and globes are intact. No calvar ial fracture. IMPRESSION: No acute intracranial abnormality seen.
[2020-07-24 12:10] LABS: D-Dimer 0.34 mg/L FEU (<0.60); Partial Thromboplastin Time 31.6 sec (22.0-30.0)
[2020-07-24] MEDS ORDERED: ACETAMINOPHEN TAB 500 MG TAB PO STA (13:32)
[2020-07-24] MEDS ORDERED: ASPIRIN 81 MG PO STA (13:33)
[2020-07-24] MEDS ORDERED: NITROGLYCERIN SL TABS 0.4 MG TAB SUBLINGUAL PRN (13:33)
[2020-07-24] MEDS ORDERED: ALBUTEROL NEBULIZED 2.5 MG/3 ML INHALATION PRN (15:13)
--- NOTE | 2020-07-24 15:14 | P.CNPUL ---
History of Present Illness Consult date: 07/24/20 Reason for consult: dyspnea History of present illness: very pleasant 64-year-old female patient, has multiple medical problems and comorbidities. 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 She has a low-grade B cell lymphoma, non-Hodgkin's lymphoma that was treated through Dr. Stallings and the patient is in complete remission for now. She also has chronic arthritis and she is under investigation for rheumatologic disorder. She has diagnosed having Sjogren's disease. There is a possibility that she may also lupus. She is seeing Dr. Monk in that regards. Other comorbidities include diabetes mellitus, diabetic retinopathy, hypertension, hyperlipidemia, and chronic back pain in addition to chronic atrial fibrillation. She has mild intermittent bronchial asthma for which she uses Ventolin on an as-needed basis. She is obese and she has gained a lot of weight over the years. Roughly, she has gained approximately 40 pounds. She is having shortness of breath with activity. Sometimes walking half a block would make her short of breath. No significant cough or sputum. No chest pain. No pleurisy or hemoptysis. Her resting pulse ox is ranging between 91-93% and this was confirmed today. Upon taking. Deep breaths, the patient is able to build up her oxygen levels up to 97-98%. She is a lifetime nonsmoker. A CAT scan of the chest abdomen and pelvis that was done on 10/15/2019 as part of her lymphoma workup showed no acute abnormalities in the lungs and there is no evidence of pneumonia or pleural effusion or lung collapse. There is a calcified granuloma in the left lower lobe which has no clinical implication and is a old chronic finding. The patient has undergone a spirometry at her primary care physician's office and this was done on 06/29/2019. Based on the spirometry, the patient is restricted with a FEV1 over FVC ratio of 70 and an FVC of 45% of predicted. The patient has been trialed on various inhalers including Spiriva and other long- acting inhalers such as Advair without any much benefit. No history of any DVTs. No swelling in lower extremities. The patient came into the emergency department because of chest discomfort and shortness of breath. Her symptoms of been going on for the past 1 week. She has difficulties describing her chest discomfort and she started to be on her left sternal chest area and she had some limited shortness of breath. The patient will wake up in the middle of the night because of shortness of breath. Unable to lay down flat. She does have typical features otherwise and I discussed it with her in the past. She has taken several steroid chest to her back and shoulder which made her gain weight over the years. She has no CPAP or BiPAP or any other form of positive pressure ventilator at home. She does have oxygen at home. No cough. No fever. No chills. No sputum production. No pleurisy. No hemoptysis. She had a fall also on her shoulder approximately a week ago. In the ED, the was a 6.8 with hemoglobin 15.8 and the platelet count of 196, coagulation profile is within normal, blood gases was done that sh owed a pH of 7.41 with a pCO2 of 51 and pO2 of 67. The patient has chronic metabolic alkalosis with a right common level of 36, sodium was 138 with a potassium of 4, BUN was 20 with a creatinine of 0.7, LFTs were within normal limits, troponin 2 was negative, proBNP level was 96, total protein was 7.4 with an albumin of. The chest x-ray was within normal limits and there was cardiomegaly. The chest x-ray was reviewed. CAT scan of the brain showed no acute intracranial abnormalities. Review of Systems Comprehensive General Adult ROS Reported by Patient Constitutional * Constitutional: no fever, no night sweats, no significant weight loss, no exercise intolerance, weight gain (40lbs) (fatigue and increased sleepiness.) Eyes * Eyes: no dry eyes, no irritation, vision change ENMT * Ears: no difficulty hearing, no ear pain * Nose: no frequent nosebleeds, no nose problems, no sinus problems * Mouth/Throat: no sore throat, no bleeding gums, no snoring, no dry mouth, no mouth ulcers, no oral abnormalities, no teeth problems Cardiovascular * Cardiovascular: no chest pain, no arm pain on exertion, no shortness of breath when lying down, no palpitations, no known heart murmur, shortness of breath when walking (chronic atrial fibrillation) Respiratory * Respiratory: no cough, no wheezing, no coughing up blood, no sleep apnea, s hortness of breath Gastrointestinal * Gastrointestinal: no abdominal pain, no nausea, no vomiting, no constipation, normal appetite, no diarrhea, not vomiting blood, no dyspepsia, no GERD Genitourinary * Genitourinary: no incontinence, no difficulty urinating, no hematuria, no increased frequency Musculoskeletal * Musculoskeletal: no muscle aches, no muscle weakness, no swelling in the extre mities, arthralgias/joint pain, back pain Integumentary * Skin: no abnormal mole, no jaundice, no rashes, no laceration Neurologic * Neurologic: no loss of consciousness, no weakness, no numbness, no seizures, no dizziness, no migraines, no headaches, no tremor Psychiatric * Psych: no sleep disturbances, feeling safe in a relationship, no alcohol abuse, no anxiety, no hallucinations, no suicidal thoughts, depression Endocrine * Endocrine: fatigue Hematologic/Lymphatic * Hematologic/Lymphatic no swollen glands, no bruising, no excessive bleeding Allergic/Immunologic * Allergy/Immunologic: no runny nose, no sinus pressure, no itching, no hives, no frequent sneezing Constitutional: Reports daytime sleepiness, Reports fatigue, Reports weakness Eyes: denies as per HPI, denies blurred vision, denies bulging eye, denies decreased vision, denies diplopia, denies discharge, denies dry eye, denies irritation, denies itching, denies pain, denies photophobia, denies loss of peripheral vision, denies loss of vision, denies tunnel vision/blind spots Ears: deny: decreased hearing, ear discharge, earache, tinnitus Ears, nose, mouth and throat: Denies headache, Denies sore throat Breasts: absent: as per HPI, change in shape, gynecomastia, masses, nipple disch arge, pain, skin changes, swelling Cardiovascular: Reports decreased exercise tolerance, Reports dyspnea on exertion Respiratory: Reports dyspnea, Reports snoring Gastrointestinal: Reports as per HPI Genitourinary: Reports as per HPI Menstruation: Reports as per HPI Musculoskeletal: Reports as per HPI, Reports low back pain Musculoskeletal: absent: ankle pain, ankle stiffness, ankle swelling Integumentary: Reports as per HPI Neurological: Reports as per HPI Psychiatric: Reports as per HPI Endocrine: Reports as per HPI, Reports fatigue Hematologic/Lymphatic: Reports as per HPI Allergic/Immunologic: Reports as per HPI Past Medical History Past Medical History: Atrial Fibrillation, COPD, Diabetes Mellitus, Hyperlipidemia, Hypertension Additional Past Medical History / Comment(s): Past medical history is positive for Pereyra catheter low-grade B-cell lymphoma, hypothyroidism, diabetes mellitus, hyperlipidemia, obesity, depression, diabetes mellitus with retinopathy, hypertension, chronic atrial fibrillation, bronchial asthma, acid reflux, chronic back pain, inflammatory rotator cuff tendon and lumbar spondylolisthesis, questionable lupus History of Any Multi-Drug Resistant Organisms: None Reported Past Surgical History: Orthopedic Surgery Additional Past Surgical History / Comment(s): Past surgical history includes arthroscopic shoulder surgery, lumpectomy on the right, Without release bilaterally, knee surgery 2010 2014, hysterectomy in 2018, cholecystectomy 1998 Past Anesthesia/Blood Transfusion Reactions: No Reported Reaction Additional Past Anesthesia/Blood Transfusion Reaction / Comment(s): hx: blood transfusions no reaction Past Psychological History: Depression Smoking Status: Never smoker Past Alcohol Use History: Rare Past Drug Use History: None Reported - Past Family History Mother Family Medical History: No Reported History Medications and Allergies Home Medications Medication Instructions Recorded Confirmed Type Famotidine 20 mg PO HS 04/20/18 07/24/20 History Flecainide Acetate [Tambocor] 100 mg PO Q12HR 04/20/18 07/24/20 History INSULIN LISPRO (humaLOG) [humaLOG] 20 units SQ AC-TID 04/20/18 07/24/20 History Insulin Glargine [Lantus] 50 unit SQ HS 04/20/18 07/24/20 History Levothyroxine Sodium [Synthroid] 88 mcg PO DAILY 04/20/18 07/24/20 History Losartan Potassium 50 mg PO HS 04/20/18 07/24/20 History Rivaroxaban [Xarelto] 20 mg PO DAILY@1700 04/20/18 07/24/20 History Venlafaxine HCl ER [Effexor Xr] 37.5 mg PO DAILY 04/20/18 07/24/20 History Albuterol Inhaler [Ventolin Hfa 2 puff INHALATION RT-QID PRN 07/24/20 07/24/20 History Inhaler] Atorvastatin [Lipitor] 10 mg PO HS 07/24/20 07/24/20 History Metoprolol Tartrate [Lopressor] 25 mg PO BID 07/24/20 07/24/20 History Multivit-Min/FA/Lycopen/Lutein 1 tab PO W/SUPPER 07/24/20 07/24/20 History [Centrum Silver Tablet] Pioglitazone [Actos] 30 mg PO DAILY@1700 07/24/20 07/24/20 History Allergies Allergy/AdvReac Type Severity Reaction Status Date / Time Penicillins Allergy Rash/Hives Verified 07/24/20 12:15 Tetracyclines Allergy Rash/Hives Verified 07/24/20 12:15 nickel AdvReac metal taste Verified 07/24/20 12:15 Physical Exam Vitals: Vital Signs Temp Pulse Resp BP Pulse Ox 07/24/20 13:42 77 20 123/58 99 07/24/20 11:46 18 07/24/20 11:07 98.1 F 75 18 110/55 95 Intake and Output 07/23/20 07/24/20 07/24/20 22:59 06:59 14:59 Other: Weight 86.183 kg * General Appearance no diaphoresis, no respiratory distress, speech not interrupted by breaths, no dyspnea, no pallor, not cachectic, well nourished, appears well, obesity * HEENT no pursed lip breathing, no jugular venous distention, no mucous membrane cyanosis, no perioral cyanosis, Mallampati Classification: Class 4 * Chest no barrel chest, no retractions, no sternocleidomastoid muscle contractions, no supraclavicular retractions, no intercostal retractions, no prolonged expiratory wheezing, no decreased air movement, no rhonchi, no hyperinflation, (normal) adventitious sounds: rales / crackles: bilaterally: midlung kirby * Heart no right ventricular heave, no distant heart sounds, no s3 gallop, (normal) jugular vein: jugular venous distention: by 0cm, (normal) jugular vein, irregular heart rhythm: totally irregular * GI bowel sounds: hyperactive (borborygmi), bowel sounds: diminished or absent * Extremities no cyanosis, no clubbing, no edema * Neurologic no decreased mental status, no somnolence, no confusion * Assisstive Devices: ambulates with no assitive devices * Gait and Mobility: gait WNL, full weight bearing Results - Laboratory Findings CBC and BMP: 07/24/20 11:22 07/24/20 11:22 PT/INR, D-dimer PT 11.0 sec (9.0-12.0) 07/24/20 11:22 INR 1.0 (<1.2) 07/24/20 11:22 D-Dimer 0.34 mg/L FEU (<0.60) 07/24/20 11:22 Abnormal lab findings: Abnormal Labs 07/24/20 07/24/20 11:22 11:22 APTT 31.6 H Chloride 96 L Carbon Dioxide 36 H BUN 22 H Glucose 142 H - Diagnostic Findings Chest x-ray: image reviewed Assessment and Plan Plan: 1 dyspnea/chest pain under investigation. Terms of shortness of breath, the patient this has chronic and the patient is obese and has chronic obesity hypoventilation syndrome. She does have history of asthma which is currently inactive in stable and chest x-ray is not showing any acute abnormalities. Cardiac enzymes are negative. ProBNP level is negative. Patient is afebrile. No signs of any infection. My understanding is that the patient is being admitted to make sure there is no underlying cardiac event and she is going to observation to be seen by cardiology. 2 chronic dyspnea, class III with chronic hypoxic and hypercapnic respiratory failure. The patient is a chronic CO2 retainer and based on previous blood gases she has a pCO2 in the 50 range with secondary metabolic alkalosis. She has gained significant amount of weight and she has features of JULIET and obesity hypoventilation syndrome and her resting pulse ox ranges typically between 91- 93%. 3 obesity, with ongoing weight related to chronic steroid use 4 chronic bronchial asthma mild intermittent in nature and using Proair on an as-needed basis 5 chronic atrial fibrillation, currently in a sinus rhythm. 6 chronic back pain 7 diabetes mellitus type 2, currently on Lantus and utilizes Humalog on an as- needed basis per scale 8 non-Hodgkin's lymphoma, low-grade lymphoma and the patient has been in remission 9 chronic hypertension 10 hyperlipidemia 11. Questionable lupus 12 . Depression Plan Follow the pulmonary standpoint, the patient is stable. Her breathing status is stable. I would like to do an outpatient sleep study and this patient for a BiPAP order AVAPS unit which would help her with chronic hypoxic and hypercapnic respiratory failure. A based on echocardiogram will be ordered. Cardiology consultation is pending. Resume home medication. Add thyroid function tests. We'll continue to follow.
[2020-07-24 16:51] LABS: Glucose,Whole Blood 146 mg/dL (75-99)
[2020-07-24] MEDS ORDERED: RIVAROXABAN 20 MG TAB PO SCH (17:00)
[2020-07-24] MEDS ORDERED: PIOGLITAZONE 30 MG TAB PO SCH (17:00)
[2020-07-24] MEDS ORDERED: ALPRAZolam 0.25 MG TAB PO PRN (17:05)
[2020-07-24] MEDS ORDERED: MULTIVITAMINS, THERA 1 EACH TAB PO SCH (17:30)
--- NOTE | 2020-07-24 18:12 | HP ---
HISTORY AND PHYSICAL DATE OF SERVICE: 07/24/2020 CHIEF COMPLAINT: Shortness of breath. HISTORY OF PRESENT ILLNESS: This 64-year-old woman with a past medical history of multiple medical problems, including history of atrial fibrillation, asthma, history of diabetes mellitus, GERD, hypertension, hyperlipidemia, history of liver disease, being followed by Dr. Roger in the outpatient setting, was not feeling well for the past several days. The patient apparently had a head cold and patient was treated with some steroids. The patient was gaining weight. The patient is also complaining of some chest discomfort which is described as a funny feeling in the anterior part of chest which is on and off in the substernal and more towards the left side of the chest. Because of the multiple medical issues, the patient came to [facility] and was admitted for further evaluation. The patient also has a history of atrial fibrillation. Cardiology has seen the patient also. Evaluation by Dr. Echevarria is in progress at this time. Initial troponins are negative. COVID-19 is also negative. Initial EKG showed low voltages; otherwise nonspecific ST-T changes. No fever, no history of any contact with COVID-19 at this time. PAST MEDICAL HISTORY: History of asthma, atrial fibrillation, history of diabetes mellitus, history of GERD, hypertension, hyperlipidemia. MEDICATIONS: Lipitor, Ventolin, Xarelto, Effexor, Lopressor, losartan, Synthroid, Lantus, Humalog, Tambocor, Pepcid, Actos, multivitamins. Doses are reviewed. ALLERGIES: PENICILLIN AND TETRACYCLINE AND NICKEL. FAMILY HISTORY: Diabetes mellitus in the family. SOCIAL HISTORY: No history of smoking. Occasional alcohol intake. REVIEW OF SYSTEMS: ENT: No diminished hearing. No diminished vision. CARDIOVASCULAR SYSTEM: As mentioned earlier. RESPIRATORY SYSTEM: As mentioned earlier. GI: No nausea, vomiting. : No dysuria or retention. NERVOUS SYSTEM: No numbness, weakness. ALLERGY/IMMUNOLOGY: History of asthma. MUSCULOSKELETAL: As mentioned earlier. HEMATOLOGY/ONCOLOGY: No history of anemia. ENDOCRINE: Diabetes mellitus. CONSTITUTIONAL: As mentioned earlier. DERMATOLOGY: Negative. RHEUMATOLOGY: Negative. PSYCHIATRY: As mentioned earlier. PHYSICAL EXAMINATION: Patient is alert, oriented x3. Pulse 75, blood pressure 152/82, respiration 18, temperature 97.6, pulse ox 98% on 2 L. HEENT: Conjunctivae normal. NECK: No jugular venous distention. No carotid bruit. No lymph node enlargement. Neck is obese. CARDIOVASCULAR SYSTEM: S1, S2 muffled. No S3. No S4. RESPIRATORY SYSTEM: Breath sounds diminished at the bases. A few scattered rhonchi. No crackles. ABDOMEN: Soft, non-tender. No mass palpable. LEGS: No edema. No swelling. NERVOUS SYSTEM: Higher functions as mentioned earlier. Moves all 4 limbs. No focal motor or sensory deficit. LYMPHATICS: No lymph node palpable in neck, axillae or groin. SKIN: No ulcer, rash, bleeding. JOINTS: No active deforming arthropathy. LABS: CBC within normal limits. Sodium 138, potassium 4. Glucose 142. Troponins are noted. EKG noted. Chest x-ray noted. ASSESSMENT: 1. Chest pain for evaluation; possible unstable angina. 2. Shortness of breath; possible acute bronchial asthma, acute exacerbation. 3. History of recent acute purulent tracheobronchitis. 4. Chronic atrial fibrillation. 5. History of diabetes mellitus, type 2. 6. Gastroesophageal reflux disease. 7. Hypertension. 8. Hyperlipidemia. 9. Liver disease. 10.History of degenerative joint disease. 11.History of pneumonia. 12.Rheumatoid arthritis. 13.History of leukemia, treated with Gleevec. 14.History of Hodgkin's and lymphoma. 15.History of ovarian cancer with surgery only. 16.History of bilateral peripheral neuropathy. 17.History of bilateral diabetic retinopathy. 18.History of lupus. 19.History of Sjogren's. 20.History of chronic low back pain. 21.History of falls. 22.Gait dysfunction. 23.History of breast surgery. 24.History of cholecystectomy. 25.History of depression. 26.Obesity with body mass index of 38.4. RECOMMENDATIONS AND DISCUSSION: In this 64-year-old woman who presented with multiple complex medical issues, we will monitor the patient closely, continue the current medications, continue symptomatic treatment. Otherwise at this time, rule out myocardial infarction. Cardiology consultation. Pulmonary consultation. Otherwise, resume the home medications. TSH is being ordered. Two-D echo has also been ordered. Overall prognosis is guarded because of multiple complex medical issues. Further recommendations to follow. A copy of this dictation is being forwarded to Dr. Roger, who is the primary physician. MMODL / IJN: [id number] /
[2020-07-24] MEDS: INSULIN ASPART (NovoLOG) 100 UNIT/ML VIAL SQ SCH (18:13)
[2020-07-24 20:18] LABS: Glucose,Whole Blood 110 mg/dL (75-99)
[2020-07-24] MEDS ORDERED: LOSARTAN 50 MG TAB PO SCH (21:00)
[2020-07-24] MEDS ORDERED: FAMOTIDINE 20 MG TAB PO SCH (21:00)
[2020-07-24] MEDS ORDERED: INSULIN DETEMIR (LEVEMIR) 100 UNIT/ML SYR SQ SCH (21:00)
[2020-07-24] MEDS ORDERED: ATORVASTATIN 10 MG TAB PO SCH (21:00)
[2020-07-24] MEDS: METOPROLOL TARTRATE 25 MG TAB PO SCH (21:09)
[2020-07-24] MEDS: FLECAINIDE 50 MG TAB PO SCH (21:09)
[2020-07-25] MEDS ORDERED: LEVOTHYROXINE 88 MCG TAB PO SCH (06:30)
[2020-07-25 07:01] LABS: Glucose,Whole Blood 94 mg/dL (75-99)
[2020-07-25] MEDS: INSULIN ASPART (NovoLOG) 100 UNIT/ML VIAL SQ SCH (07:24)
[2020-07-25] MEDS ORDERED: PANTOPRAZOLE 40 MG TABLET PO SCH (07:30)
[2020-07-25 07:44] VITALS: RESP 18
--- NOTE | 2020-07-25 08:33 | P.CRDCN ---
History of Present Illness Consult date: 07/25/20 Chief complaint: Shortness of breath History of present illness: This is a 64-year-old female patient who sees Dr. Alberts in the office on regul ar basis with a past medical history significant for diabetes and hypertension and dyslipidemia as well as obesity and chronic hypoxic respiratory failure she is on oxygen at night presented to the hospital complaining of shortness of breath. The patient stated that she always does have shortness of breath with exertion but for the last few weeks the shortness of breath has progressed a slightly. She describes mainly exertional dyspnea. Beside that she did have an episode of burning sensation in the chest. We consulted to see her mainly because of chest discomfort. The chest discomfort is definitely atypical for angina. Currently she is chest pain-free. No history of coronary artery d isease or congestive heart failure. She is known to have paroxysmal atrial fibrillation. The EKG showed sinus rhythm without any significant ST or T-wave abnormalities. The troponin came in to be unremarkable. The chest x-ray did not show any acute abnormalities. The rest of the workup came in to be unremarkable. The patient stated that she underwent multiple heart catheterization in the past and old came in to be unremarkable also she stated that she underwent a stress test within the last few years at the office and that came in to be unremarkable. She would like to go home. 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 History of Any Multi-Drug Resistant Organisms: None Reported Past Surgical History: Breast Surgery, Cholecystectomy, Hysterectomy, Joint Replacement, Orthopedic Surgery Additional Past Surgical History / Comment(s): Bilateral breast reductions, R breast benign lumpectomy, total hysterectomy, bilateral total knee arthroplasties, bilateral carpal tunnel releases, L shoulder arhtroscopy, liver biopsy, colonoscopy, bilateral cataract removals/lens implants. Past Anesthesia/Blood Transfusion Reactions: No Reported Reaction Additional Past Anesthesia/Blood Transfusion Reaction / Comment(s): hx: blood transfusions no reaction Smoking Status: Never smoker - Past Family History Mother Family Medical History: Diabetes Mellitus Additional Family Medical History / Comment(s): Mother from diabetic complications at the age of 72 yrs. Father Family Medical History: Myocardial Infarction (HI) Additional Family Medical History / Comment(s): Father of a massive HI at the age of 72 yrs. Medications and Allergies Home Medications Medication Instructions Recorded Confirmed Type Famotidine 20 mg PO HS 04/20/18 07/24/20 History Flecainide Acetate [Tambocor] 100 mg PO Q12HR 04/20/18 07/24/20 History INSULIN LISPRO (humaLOG) [humaLOG] 20 units SQ AC-TID 04/20/18 07/24/20 History Insulin Glargine [Lantus] 50 unit SQ HS 04/20/18 07/24/20 History Levothyroxine Sodium [Synthroid] 88 mcg PO DAILY 04/20/18 07/24/20 History Losartan Potassium 50 mg PO HS 04/20/18 07/24/20 History Rivaroxaban [Xarelto] 20 mg PO DAILY@1700 04/20/18 07/24/20 History Venlafaxine HCl ER [Effexor Xr] 37.5 mg PO DAILY 04/20/18 07/24/20 History Albuterol Inhaler [Ventolin Hfa 2 puff INHALATION RT-QID PRN 07/24/20 07/24/20 History Inhaler] Atorvastatin [Lipitor] 10 mg PO HS 07/24/20 07/24/20 History Metoprolol Tartrate [Lopressor] 25 mg PO BID 07/24/20 07/24/20 History Multivit-Min/FA/Lycopen/Lutein 1 tab PO W/SUPPER 07/24/20 07/24/20 History [Centrum Silver Tablet] Pioglitazone [Actos] 30 mg PO DAILY@1700 07/24/20 07/24/20 History Allergies Allergy/AdvReac Type Severity Reaction Status Date / Time Penicillins Allergy Rash/Hives Verified 07/24/20 12:15 Tetracyclines Allergy Rash/Hives Verified 07/24/20 12:15 nickel AdvReac metal taste Verified 07/24/20 12:15 Physical Exam Vitals: Vital Signs Temp Pulse Pulse Resp BP BP Pulse Ox 07/25/20 07:56 73 95 07/25/20 06:47 98.1 F 74 18 118/70 97 07/25/20 02:00 97.9 F 75 16 158/71 99 07/24/20 20:00 98.1 F 88 17 136/64 96 07/24/20 15:44 97.6 F 75 18 152/82 98 07/24/20 13:42 77 20 123/58 99 07/24/20 11:46 18 07/24/20 11:07 98.1 F 75 18 110/55 95 Intake and Output 07/24/20 07/25/20 07/25/20 22:59 06:59 14:59 Output Total 200 Balance -200 Output: Urine 200 Other: Voiding Method Toilet Toilet # Voids 1 1 Weight 86.183 kg - Constitutional General appearance: no acute distress - Respiratory Respiratory: bilateral: CTA - Cardiovascular Rhythm: regular Heart sounds: normal: S1, S2 Results 07/24/20 11:22 07/24/20 11:22 Cardiac Enzymes 07/24/20 07/24/20 07/24/20 Range/Units 11:22 11:22 13:48 AST 26 (14-36) U/L Troponin I <0.012 <0.012 (0.000-0.034) ng/mL 07/24/20 Range/Units 17:39 AST (14-36) U/L Troponin I <0.012 (0.000-0.034) ng/mL Coagulation 07/24/20 Range/Units 11:22 PT 11.0 (9.0-12.0) sec APTT 31.6 H (22.0-30.0) sec CBC 07/24/20 Range/Units 11:22 WBC 6.8 (3.8-10.6) k/uL RBC 4.47 (3.80-5.40) m/uL Hgb 13.8 (11.4-16.0) gm/dL Hct 42.3 (34.0-46.0) % Plt Count 196 (150-450) k/uL Comprehensive Metabolic Panel 07/24/20 Range/Units 11:22 Sodium 138 (137-145) mmol/L Potassium 4.0 (3.5-5.1) mmol/L Chloride 96 L (98-107) mmol/L Carbon Dioxide 36 H (22-30) mmol/L BUN 22 H (7-17) mg/dL Creatinine 0.71 (0.52-1.04) mg/dL Glucose 142 H (74-99) mg/dL Calcium 9.6 (8.4-10.2) mg/dL AST 26 (14-36) U/L ALT 33 (4-34) U/L Alkaline Phosphatase 105 (38-126) U/L Total Protein 7.1 (6.3-8.2) g/dL Albumin 4.0 (3.5-5.0) g/dL Current Medications Generic Name Dose Route Start Last Admin Trade Name Freq PRN Reason Stop Dose Admin Albuterol Sulfate 2.5 mg 07/24/20 15:13 07/25/20 07:52 Albuterol Nebulized 2.5 Mg/3 Ml INHALATION 2.5 mg RT-QID PRN Administration Shortness Of Breath Alprazolam 0.25 mg 07/24/20 17:05 Alprazolam 0.25 Mg Tab PO TID PRN Anxiety Aspirin 325 mg 07/25/20 09:00 Aspirin 325 Mg Tab PO DAILY VERNON Atorvastatin Calcium 10 mg 07/24/20 21:00 07/24/20 21:09 Atorvastatin 10 Mg Tab PO 10 mg HS VERNON Administration Famotidine 20 mg 07/24/20 21:00 07/24/20 21:09 Famotidine 20 Mg Tab PO 20 mg HS VERNON Administration Flecainide Acetate 100 mg 07/24/20 21:00 07/24/20 21:09 Flecainide 50 Mg Tab PO 100 mg Q12HR VERNON Administration Insulin Aspart 20 unit 07/24/20 17:30 07/25/20 07:24 Insulin Aspart (Novolog) 100 Unit/Ml Vial SQ Not Given AC-TID VERNON Insulin Detemir 50 unit 07/24/20 21:00 07/24/20 21:03 Insulin Detemir (Levemir) 100 Unit/Ml Syr SQ Not Given HS VERNON Levothyroxine Sodium 88 mcg 07/25/20 06:30 07/25/20 06:10 Levothyroxine 88 Mcg Tab PO 88 mcg 0630 VERNON Administration Losartan Potassium 50 mg 07/24/20 21:00 07/24/20 21:09 Losartan 50 Mg Tab PO 50 mg HS VERNON Administration Metoprolol Tartrate 25 mg 07/24/20 21:00 07/24/20 21:09 Metoprolol Tartrate 25 Mg Tab PO 25 mg BID VERNON Administration Multivitamins 1 each 07/24/20 17:30 07/24/20 16:48 Multivitamins, Thera 1 Each Tab PO 1 each W/SUPPER VERNON Administration Nitroglycerin 0.4 mg 07/24/20 13:33 Nitroglycerin Sl Tabs 0.4 Mg Tab SUBLINGUAL Q5M PRN Chest Pain Pantoprazole Sodium 40 mg 07/25/20 07:30 07/25/20 07:37 Pantoprazole 40 Mg Tablet PO 40 mg AC-BRKFST VERNON Administration Pioglitazone HCl 30 mg 07/24/20 17:00 07/24/20 17:01 Pioglitazone 30 Mg Tab PO 30 mg DAILY@1700 VERNON Administration Rivaroxaban 20 mg 07/24/20 17:00 07/24/20 17:01 Rivaroxaban 20 Mg Tab PO 20 mg DAILY@1700 VERNON Administration Sodium Chloride 10 ml 07/24/20 21:00 07/24/20 21:09 Sodium Chloride 0.9% Flush 10 Ml Syringe IV 10 ml BID VERNON Administration Venlafaxine HCl 37.5 mg 07/25/20 09:00 Venlafaxine Hcl Er 37.5 Mg Cap PO DAILY VERNON Intake and Output 07/24/20 07/25/20 07/25/20 22:59 06:59 14:59 Output Total 200 Balance -200 Output: Urine 200 Other: Voiding Method Toilet Toilet # Voids 1 1 Weight 86.183 kg 07/24/20 11:22 07/24/20 11:22 Assessment and Plan Assessment: Assessment #1 atypical chest discomfort #2 morbid obesity #3 chronic hypoxic respiratory failure #4 paroxysmal atrial fibrillation Plan #1 acute coronary event was ruled out #2 from the cardiovascular standpoint of view, the patient can be discharged home #3 she would like to have the stress test as an outpatient #4 she will follow-up with Dr. Alberts
[2020-07-25] MEDS: METOPROLOL TARTRATE 25 MG TAB PO SCH (08:57)
[2020-07-25] MEDS: FLECAINIDE 50 MG TAB PO SCH (08:59)
[2020-07-25] MEDS ORDERED: ASPIRIN 325 MG TAB PO SCH (09:00)
[2020-07-25] MEDS ORDERED: VENLAFAXINE HCL ER 37.5 MG CAP PO SCH (09:00)
[2020-07-25 09:15] LABS: Basophils # (A) 0.05 X 10*3/uL (0.00-0.10); Basophils % (A) 0.9 %; Eosinophils # (A) 0.21 X 10*3/uL (0.04-0.35); Eosinophils % (A) 3.8 %; HCT 40.4 % (37.2-46.3); HGB 12.5 g/dL (12.0-15.0); Lymphocytes % (A) 19.9 %; MCH 30.3 pg (27.0-32.0); MCHC 30.9 g/dL (32.0-37.0); MCV 97.8 fL (80.0-97.0); Mean Platelet Volume 10.2 fL (9.5-12.2); Monocytes # (A) 0.54 X 10*3/uL (0.20-1.00); Monocytes % (A) 9.7 %; Platelet Count 171 X 10*3/uL (140-440); RBC 4.13 X 10*6/uL (4.10-5.20); RDW 13.9 % (11.5-14.5); WBC 5.54 X 10*3/uL (4.50-10.00)
[2020-07-25 09:46] LABS: Anion Gap 6.9 mmol/L (4.00-12.00); BUN/Creat Ratio 26.25 Ratio (12.00-20.00); Calcium 9.4 mg/dL (8.7-10.3); Carbon Dioxide 35.1 mmol/L (21.6-31.8); Chol/HDL Ratio 2.73; LDL Cholesterol,Calculated 72.4 mg/dL (0.0-131.0); Non-African American GFR(CKD) 76.8 (60.0-200.0); Potassium 4.5 mmol/L (3.5-5.5); VLDL Calculation 24.6 mg/dL (5.00-40.00)
[2020-07-25 11:25] LABS: Glucose,Whole Blood 138 mg/dL (75-99)
--- NOTE | 2020-07-25 13:51 | P.DS ---
Providers Date of admission: 07/24/20 13:33 Expected date of discharge: 07/25/20 Attending physician: Jaspreet Mckay MD Consults: 07/24/20 13:33 Consult Physician Routine Consulting Provider: Vi Echevarria Consult Reason/Comments: dyspnea Do you want consulting provider notified?: Yes Consult Physician Urgent Consulting Provider: Mauro Mendoza Consult Reason/Comments: cp Do you want consulting provider notified?: Yes 07/25/20 11:35 Consult Physician Routine Consulting Provider: Cuate Snowden Consult Reason/Comments: raynauds Do you want consulting provider notified?: Yes Primary care physician: Katarzyna Roger Hospital Course: Final diagnosis Chest pain for evaluation, possible unstable angina Shortness of breath, possible acute bronchial asthma, acute exacerbation History of recent acute purulent tracheobronchitis Chronic atrial fibrillation History of diabetes mellitus type 2 Gastroesophageal reflux disease Hypertension Hyperlipidemia Liver disease history of degenerative joint disease History of pneumonia history of leukemia, treated with Gleevec Rheumatoid arthritis History of Hodgkin's and lymphoma history of ovarian cancer with surgery only history of bilateral peripheral neuropathy History of bilateral diabetic retinopathy history of lupus History of Sjogren's History of chronic low back pain History of falls Gait dysfunction history of breast surgery history of cholecystectomy history of depression Obesity with a body mass index of 38.4 Discharge disposition Patient is being discharged in a stable condition with guarded prognosis to home. Patient will follow-up with Dr. Katarzyna Roger upon discharge. Patient also instructed to follow-up with cardiology along with vascular surgery and pulmonary in the outpatient setting. Total time taken is greater than 35 minutes. Hospital course This is a 64-year-old female who was recently admitted with increasing shortness of breath and not feeling well for the past several days and was being closely monitored. Patient was seen and evaluated by cardiology along with pulmonary. Patient will be following up outpatient cardiology for stress test along with pulmonary in the outpatient setting. Patient was started on bronchodilators with nebulize treatments and a prescription for nebulizer was provided as patient is to be continued on breathing inhalational treatments 4 times daily and as needed or acute exacerbation of acute bronchial asthma with the possibility of COPD. Patient will follow up with pulmonary outpatient for further testing. Patient is also experiencing some discoloration to her hands that are bluish that has been ongoing for over a year and patient will be following up with Dr. Snowden in his office in the outpatient setting. This was discussed with Dr. Snowden. Currently no reports of chest pain, worsening shortness of breath, or palpitations. Patient is afebrile. No reports of nausea or vomiting and patient is tolerating diet. Patient will be discharged home today. Guarded prognosis. On exam vital signs are stable. Cardio S1, S2 are muffled. Respiratory shows diminished breath sounds at the bases with a few scattered rhonchi noted. Abdomen is soft and obese, and nontender. Nervous system shows no focal deficits. Please refer to medication reconciliation sheet for a list of medications. Patient Condition at Discharge: Stable Plan - Discharge Summary Discharge Rx Participant: No New Discharge Prescriptions: New Albuterol Nebulized [Ventolin Nebulized] 2.5 mg INHALATION Q4H 30 Days #6 box Aspirin 325 mg PO DAILY 30 Days #30 tab Continue Venlafaxine HCl ER [Effexor XR] 37.5 mg PO DAILY Rivaroxaban [Xarelto] 20 mg PO DAILY@1700 Insulin Glargine [Lantus] 50 unit SQ HS INSULIN LISPRO (humaLOG) [humaLOG] 20 units SQ AC-TID Levothyroxine Sodium [Synthroid] 88 mcg PO DAILY Losartan Potassium 50 mg PO HS Flecainide Acetate [Tambocor] 100 mg PO Q12HR Famotidine 20 mg PO HS Pioglitazone [Actos] 30 mg PO DAILY@1700 Multivit-Min/FA/Lycopen/Lutein [Centrum Silver Tablet] 1 tab PO W/SUPPER Metoprolol Tartrate [Lopressor] 25 mg PO BID Atorvastatin [Lipitor] 10 mg PO HS Albuterol Inhaler [Ventolin Hfa Inhaler] 2 puff INHALATION RT-QID PRN PRN Reason: Shortness Of Breath Discharge Medication List Famotidine 20 mg PO HS 04/20/18 [History] Flecainide Acetate [Tambocor] 100 mg PO Q12HR 04/20/18 [History] INSULIN LISPRO (humaLOG) [humaLOG] 20 units SQ AC-TID 04/20/18 [History] Insulin Glargine [Lantus] 50 unit SQ HS 04/20/18 [History] Levothyroxine Sodium [Synthroid] 88 mcg PO DAILY 04/20/18 [History] Losartan Potassium 50 mg PO HS 04/20/18 [History] Rivaroxaban [Xarelto] 20 mg PO DAILY@1700 04/20/18 [History] Venlafaxine HCl ER [Effexor XR] 37.5 mg PO DAILY 04/20/18 [History] Albuterol Inhaler [Ventolin Hfa Inhaler] 2 puff INHALATION RT-QID PRN 07/24/20 [History] Atorvastatin [Lipitor] 10 mg PO HS 07/24/20 [History] Metoprolol Tartrate [Lopressor] 25 mg PO BID 07/24/20 [History] Multivit-Min/FA/Lycopen/Lutein [Centrum Silver Tablet] 1 tab PO W/SUPPER 07/24/20 [History] Pioglitazone [Actos] 30 mg PO DAILY@1700 07/24/20 [History] Albuterol Nebulized [Ventolin Nebulized] 2.5 mg INHALATION Q4H 30 Days #6 box 07/25/20 [Rx] Aspirin 325 mg PO DAILY 30 Days #30 tab 07/25/20 [Rx] Follow up Appointment(s)/Referral(s): Katarzyna Roger MD [Primary Care Provider] - 1-2 days Torres Delgado MD [STAFF PHYSICIAN] - 1 Week (Office will call patient with appointment ) [facility] [NON-STAFF] - As Needed (Supplier of home nebulizer) Cuate Snowden MD [STAFF PHYSICIAN] - 08/02/20 12:00 pm Vi Echevarria MD [STAFF PHYSICIAN] - 08/09/20 3:45 pm (appointment made with Katherin ) Patient Instructions/Handouts: Chest Pain (GEN) Activity/Diet/Wound Care/Special Instructions: Patient is to continue with breathing inhalational treatments nebulized with a nebulizer in the home setting for COPD Activity Limited until follow-up Follow-up with primary care provider upon discharge Follow up with pulmonary outpatient Follow-up with Dr. Snowden vascular surgery in one week Follow-up with cardiology outpatient for stress test Continue consistent carb heart healthy diet Discharge Disposition: HOME SELF-CARE
[2020-07-25 14:54] VITALS: BP 127/73; PULSE 70; TEMP 97.6
== END 2020-07-25 15:14 | disposition home or self-care (01) ==
LOC: EC 10:56 → 6NMEDSUR 13:33
PROVIDERS: ADMIT Internal Medicine; ATTEND Internal Medicine
DX: R07.89 Other chest pain (principal); I48.20 Chronic atrial fibrillation, unspecified; E11.319 Type 2 diabetes mellitus with unspecified diabetic retinopathy without macular edema; K21.9 Gastro-esophageal reflux disease without esophagitis; E78.5 Hyperlipidemia, unspecified; K74.60 Unspecified cirrhosis of liver; E03.9 Hypothyroidism, unspecified; E66.01 Morbid (severe) obesity due to excess calories; G89.29 Other chronic pain; J96.11 Chronic respiratory failure with hypoxia; I48.0 Paroxysmal atrial fibrillation; J44.9 Chronic obstructive pulmonary disease, unspecified; M06.9 Rheumatoid arthritis, unspecified; M35.00 Sjogren syndrome, unspecified; M32.9 Systemic lupus erythematosus, unspecified; I10 Essential (primary) hypertension; Z68.38 Body mass index [BMI] 38.0-38.9, adult; G62.9 Polyneuropathy, unspecified; M19.90 Unspecified osteoarthritis, unspecified site; Z79.4 Long term (current) use of insulin; Z90.49 Acquired absence of other specified parts of digestive tract; Z79.01 Long term (current) use of anticoagulants; Z96.1 Presence of intraocular lens; R26.9 Unspecified abnormalities of gait and mobility; F32.9 Major depressive disorder, single episode, unspecified; Z79.899 Other long term (current) drug therapy; Z79.890 Hormone replacement therapy; Z96.653 Presence of artificial knee joint, bilateral; Z87.442 Personal history of urinary calculi; Z83.3 Family history of diabetes mellitus; Z90.710 Acquired absence of both cervix and uterus; Z88.0 Allergy status to penicillin; Z87.01 Personal history of pneumonia (recurrent); Z91.81 History of falling; Z82.49 Family history of ischemic heart disease and other diseases of the circulatory system; Z85.6 Personal history of leukemia; Z85.71 Personal history of Hodgkin lymphoma; Z85.43 Personal history of malignant neoplasm of ovary; Z20.822 Contact with and (suspected) exposure to COVID-19
CPT/HCPCS: 93005 ×2; 99285; 36415; 94640; 94760; 85379; 83880; 80061; 80053; 80048; 84443; 82550; 83605; 83735; 84484; 85025 ×2; 85610; 85730; 87635; 71046; 70450; G0378 ×2

== ENCOUNTER → 2021-07-02 | Outpatient (CLI) | payer MEDICARE ==
--- NOTE | 2021-07-02 15:41 | CT ---
EXAMINATION TYPE: CT ChestAbdPelvis w con DATE OF EXAM: 07/02/2021 COMPARISON: 05/08/2020 HISTORY: lymphoma CT DLP: 2279.4 mGycm CONTRAST: CT scan of the chest, abdomen and pelvis is performed with Oral Contrast and with IV Contrast, patien t injected with 100 mL of Isovue 300. CT Chest: LUNGS: The lungs are clear and free of infiltrate or atelectasis. No pulmonary nodule or mass is det ected. No pleural effusion or CT evidence of interstitial lung disease. Granuloma left lower lobe. MEDIASTINUM: Thoracic aorta is of normal caliber. The heart is not enlarged. No evidence for media stinal mass or adenopathy. HILAR STRUCTURES: No evidence for mass. No hilar adenopathy is appreciated. OTHER: No significant abnormality. CONTRAST CT ABDOMEN AND PELVIS FINDINGS: LIVER/GB: No calcified gallstones. No space occupying hepatic lesion. Biliary tree is of normal ca liber. PANCREAS: No inflammation. No distinct mass. SPLEEN: No splenic enlargement. No lesion seen. ADRENALS: No nodule. No thickening. KIDNEYS/BLADDER: No hydronephrosis. No nephrolithiasis. No disctinct renal mass. BOWEL: Normal appendix. Normal bowel caliber. No inflammation. Scattered sigmoid diverticulosis wit hout diverticulitis. GENITAL ORGANS: No gross abnormality. LYMPH NODES: Persistent hazy density within the small bowel mesentery unchanged from prior study. No greater than 1cm abdominal or pelvic lymph nodes are appreciated. AORTA: No significant abnormality. OSSEOUS STRUCTURES: No significant abnormality is seen. OTHER: No significant additional abnormality is seen. IMPRESSION: 1. Persistent hazy density within the small bowel mesentery unchanged from prior examination. No new adenopathy appreciated at this time.
== END | disposition home or self-care (01) ==
LOC: RADCTMAIN 13:29
PROVIDERS: ATTEND Internal Medicine Hematology & Oncology
DX: C82.03 Follicular lymphoma grade I, intra-abdominal lymph nodes (principal)
CPT/HCPCS: 82565; 84520; 71260; 74177; 36415; Q9967

== ENCOUNTER → 2022-08-23 | Outpatient (CLI) | payer MEDICARE ==
--- NOTE | 2022-08-25 07:37 | PE ---
EXAMINATION TYPE: PET CT fusion skull to thigh DATE OF EXAM: 08/23/2022 COMPARISON: Prior PET/CT August 02, 2017. Most recent CT July 02, 2021 HISTORY: History of mesenteric lymphoma treated through 2019. TECHNIQUE: Following the intravenous administration of 11.47 mCi of F-18 FDG, whole body images are performed from the skull base to the midthigh. Images are reviewed on the computer in the coronal, a xial, and sagittal planes. Reconstructed rotating images are created on independent workstation and reviewed on the computer. A localization and attenuation correction CT is performed in conjunction with the PET scan. Blood glucose level equals 88 SCAN: Subsequent Scan FINDINGS: Mean SUV mediastinum: 0.79 Mean SUV liver: 2.25 SKULL BASE AND NECK: Hypermetabolic uptake at level of vocal cords is presumed physiologic. No abnor mal hypermetabolic uptake. CHEST, MEDIASTINUM, AND HILAR REGION: Mild uptake surrounding the shoulder joints and muscles of the upper extremities presumed postinflammatory. No new areas of suspicious hypermetabolic uptake identified. ABDOMEN AND PELVIS: No new areas of suspicious hypermetabolic uptake is identified. Hypermetabolic Up take in the anterior medial left thigh muscle presumed inflammatory. OSSEOUS STRUCTURES: No definitive new suspicious hypermetabolic focal osseous lesions. OTHER CT: Small-sized thyroid noted, correlate clinically for hypothyroidism. Coronary artery calcifi cation is redemonstrated. Some calcified left hilar lymph nodes are again seen with 1 cm subpleural calcified nodule or granulo ma lateral lung base axial image 85 redemonstrated. Findings are consistent with product of old granu lomatous disease. Cholecystectomy clips are redemonstrated. Liver is diffusely isodense to slightly hypodense relative to spleen consistent with fatty infiltration. Prominent right hepatic lobe is unchanged from prior st udies. There is persistent abnormal fat stranding in the central mesentery below the pancreas. No suspicious hypermetabolic uptake is seen at this level. No suspicious new nodularity are greater than 1 cm harjeet opathy. There are scattered diverticula throughout the colon most prominent in the sigmoid colon. Uterus is surgically absent. There is multilevel spurring in the thoracolumbar spine. There is facet arthropathy lower lumbar leve ls. IMPRESSION: PET CT findings are consistent with successfully treated mesenteric abdominal lymphoma. T here is no new or recurrent abnormal hypermetabolic uptake to suggest active neoplastic recurrence.
== END | disposition home or self-care (01) ==
LOC: RADPETMAIN 13:45
PROVIDERS: ATTEND Internal Medicine Hematology & Oncology
DX: C82.03 Follicular lymphoma grade I, intra-abdominal lymph nodes (principal)
CPT/HCPCS: 78815; A9552

== ENCOUNTER 2023-10-22 23:17 | Emergency (ER) | payer MEDICARE ==
[2023-10-22 23:32] LABS: Glucose,Whole Blood 192 mg/dL (70-110)
[2023-10-22 23:47] LABS: Basophils % (A) 1 %; Eosinophils # (A) 0.3 k/uL (0-0.7); Eosinophils % (A) 5 %; HCT 40.2 % (34.0-46.0); HGB 12.4 gm/dL (11.4-16.0); Hypochromasia Slight; Lymphocytes # (A) 1.3 k/uL (1.0-4.8); Lymphocytes % (A) 21 %; MCH 28.7 pg (25.0-35.0); MCHC 30.7 g/dL (31.0-37.0); MCV 93.3 fL (80.0-100.0); Mean Platelet Volume 8.1; Monocytes # (A) 0.4 k/uL (0-1.0); Monocytes % (A) 6 %; Neutrophils % (A) 65 %; Platelet Count 137 k/uL (150-450); RDW 14.5 % (11.5-15.5); WBC 6.1 k/uL (3.8-10.6)
[2023-10-23 00:07] VITALS: RESP 18
--- NOTE | 2023-10-23 00:08 | XR ---
EXAM: XR Chest, 1 View CLINICAL HISTORY: [email or web address] XR Reason: trauma TECHNIQUE: Frontal view of the chest. COMPARISON: No relevant prior studies available. FINDINGS: Lungs: Left base linear scarring/atelectasis. Pleural space: Unremarkable. No pneumothorax. No pleural effusions. Heart: Unremarkable. No cardiomegaly. Mediastinum: Unremarkable. Normal mediastinal contour. Bones/joints: No acute osseous abnormalities. IMPRESSION: Left base linear scarring/atelectasis.
[2023-10-23 00:09] LABS: INR 1.3 (<1.2); Partial Thromboplastin Time 38.5 sec (22.0-30.0); Prothrombin Time 13.9 sec (10.0-12.5)
[2023-10-23 00:29] LABS: ALT 19 U/L (4-34); AST 38 U/L (14-36); African American GFR (CKD) >90 (>60 ml/min/1.73 sqM); Albumin 4.1 g/dL (3.5-5.0); Alcohol <10 mg/dL; Alkaline Phosphatase 148 U/L (38-126); Anion Gap 7 mmol/L; Blood Urea Nitrogen 20 mg/dL (7-17); Calcium 8.8 mg/dL (8.4-10.2); Carbon Dioxide 32 mmol/L (22-30); Chloride 98 mmol/L (98-107); Glucose 197 mg/dL (74-99); Non-African American GFR(CKD) 90 (>60 ml/min/1.73 sqM); Sodium 137 mmol/L (137-145); Total Bilirubin 0.6 mg/dL (0.2-1.3); Total Protein 7.4 g/dL (6.3-8.2)
--- NOTE | 2023-10-23 00:30 | XR ---
EXAM: XR Pelvis, 1 or 2 Views CLINICAL HISTORY: [email or web address] XR Reason: Trauma TECHNIQUE: Frontal view of the pelvis. COMPARISON: No relevant prior studies available. FINDINGS: Bones/joints: No gross acute osseous abnormalities. Other findings: Study is nondiagnostic secondary to patient's body habitus and underpenetration. IMPRESSION: Study is nondiagnostic secondary to patient's body habitus and underpenetration.
[2023-10-23 00:42] LABS: Potassium 4.1 mmol/L (3.5-5.1)
--- NOTE | 2023-10-23 00:49 | CT ---
EXAM: CT Head Without Intravenous Contrast CLINICAL HISTORY: [email or web address] CT Reason: trauma TECHNIQUE: Axial computed tomography images of the head/brain without intravenous contrast. CTDI is 45.2 mGy and DLP is 1044 mGy-cm. This CT exam was performed using one or more of the following dose reduction techniques: automated exposure control, adjustment of the mA and/or kV according to patient size, and/or use of iterative reconstruction technique. COMPARISON: No relevant prior studies available. FINDINGS: Brain: Unremarkable. No hemorrhage. No significant white matter disease. No edema. Ventricles: Unremarkable. No ventriculomegaly. Bones/joints: Left orbital floor fracture. Soft tissues: Prominent left frontal and periorbital soft tissue swelling. Sinuses: Partial opacification of the left maxillary sinus and ethmoid air cells. Mastoid air cells: Unremarkable as visualized. No mastoid effusion. IMPRESSION: 1. Prominent left frontal and periorbital soft tissue swelling. No acute intracranial abnormality. 2. Left orbital floor fracture. EXAM: CT Cervical Spine Without Intravenous Contrast CLINICAL HISTORY: [email or web address] CT Reason: trauma TECHNIQUE: Axial computed tomography images of the cervical spine without intravenous contrast. CTDI is 28.6 mGy and DLP is 790.3 mGy-cm. This CT exam was performed using one or more of the following dose reduction techniques: automated exposure control, adjustment of the mA and/or kV according to patient size, and/or use of iterative reconstruction technique. COMPARISON: No relevant prior studies available. FINDINGS: Vertebrae: Straightening of the cervical spine with loss of normal lordosis. Otherwise, alignment is maintained with preservation of vertebral body heights. No acute fracture. Discs/spinal canal/neural foramina: Moderate degenerative disc disease at the see 5 6 level. No significant bony spinal canal stenosis at any cervical level. Soft tissues: Unremarkable. IMPRESSION: No acute findings in the cervical spine.
--- NOTE | 2023-10-23 01:04 | ED ---
Fall HPI - General Chief Complaint: Fall Stated Complaint: FALL Time Seen by Provider: 10/22/23 23:26 Source: patient, EMS Mode of arrival: EMS - History of Present Illness Initial Comments: This patient is 68-year-old woman who tripped on stairs and fell striking left side of head/face. Unsure if brief loss conscious. Patient does complain of some headache and facial pain. Denies change in vision. Denies focal neurologic deficit. Denies neck pain. Denies pain to trunk or extremities MD Complaint: fall -: hour(s) Fall From: standing, down stairs (#) When Fall Occurred: [address] Fall Occurred: home Loss of Consciousness: unsure Prolonged Down Time?: no Location: face Severity: moderate Quality: aching Context: tripped/slipped - Related Data Home Medications Medication Instructions Recorded Confirmed Famotidine 20 mg PO HS 04/20/18 07/24/20 Flecainide Acetate [Tambocor] 100 mg PO Q12HR 04/20/18 07/24/20 INSULIN LISPRO (humaLOG) [humaLOG] 20 units SQ AC-TID 04/20/18 07/24/20 Insulin Glargine [Lantus Vial] 50 unit SQ HS 04/20/18 07/24/20 Levothyroxine Sodium [Synthroid] 88 mcg PO DAILY 04/20/18 07/24/20 Losartan Potassium 50 mg PO HS 04/20/18 07/24/20 Rivaroxaban [Xarelto] 20 mg PO DAILY@1700 04/20/18 07/24/20 Venlafaxine HCl ER [Effexor XR] 37.5 mg PO DAILY 04/20/18 07/24/20 Albuterol Inhaler [Ventolin Hfa 2 puff INHALATION RT-QID PRN 07/24/20 07/24/20 Inhaler] Atorvastatin [Lipitor] 10 mg PO HS 07/24/20 07/24/20 Metoprolol Tartrate [Lopressor] 25 mg PO BID 07/24/20 07/24/20 Multivit-Min/FA/Lycopen/Lutein 1 tab PO W/SUPPER 07/24/20 07/24/20 [Centrum Silver Tablet] Pioglitazone [Actos] 30 mg PO DAILY@1700 03/01/21 03/01/21 Previous Rx's Medication Instructions Recorded Albuterol Nebulized [Ventolin 2.5 mg INHALATION Q4H 30 Days #6 07/25/20 Nebulized] box Aspirin 325 mg PO DAILY 30 Days #30 tab 07/25/20 Cephalexin [Keflex] 500 mg PO Q6HR #28 cap 10/23/23 HYDROcodone/APAP 5-325MG [[place] 1 tab PO Q4HR PRN 3 Days #18 tab 10/23/23 5-325] Allergies Allergy/AdvReac Type Severity Reaction Status Date / Time Penicillins Allergy Rash/Hives Verified 07/24/20 12:15 Tetracyclines Allergy Rash/Hives Verified 07/24/20 12:15 nickel AdvReac metal taste Verified 07/24/20 12:15 Review of Systems ROS Statement: Those systems with pertinent positive or pertinent negative responses have been documented in the HPI. ROS Other: All systems not noted in ROS Statement are negative. Constitutional: Denies: fever Eyes: Denies: vision change ENT: Denies: ear pain, hearing loss Respiratory: Denies: cough, dyspnea Cardiovascular: Denies: chest pain, syncope Gastrointestinal: Denies: abdominal pain, vomiting, diarrhea Genitourinary: Denies: dysuria, hematuria Musculoskeletal: Denies: back pain Skin: Denies: rash Neurological: Reports: headache. Denies: weakness, numbness, paresthesias Hematological/Lymphatic: Denies: easy bleeding Past Medical History Past Medical History: Atrial Fibrillation, Asthma, Cancer, Diabetes Mellitus, Eye Disorder, GERD/Reflux, Hyperlipidemia, Hypertension, Liver Disease, Osteoarthritis (OA), Pneumonia, Renal Disease, Rheumatoid Arthritis (RA) Additional Past Medical History / Comment(s): Leukemia diagnosed 18 yrs ago and tx successfully with experimental gle-vac, 2018 nonhodgkins follicular lymphoma tx with chemo and in remission, ovarian cancer with surgery only, IDDM type II, neuropathy bilateral feet, bilateral diabetic retinopathy, lupus, Srojen's, chronic low back pain, lumbar spondylolisthesis, sacral vertibral fracture, kidney stones which pt passed on her own, hypothyroid, diverticular disease, small amount liver cirrhosis, pt states she has FALLS and last fell approximately 3 weeks ago and has had r shoulder pain since and states she struck her head and has had vertigo since. History of Any Multi-Drug Resistant Organisms: None Reported Past Surgical History: Breast Surgery, Cholecystectomy, Hysterectomy, Joint Replacement, Orthopedic Surgery Additional Past Surgical History / Comment(s): Bilateral breast reductions, R breast benign lumpectomy, total hysterectomy, bilateral total knee arthroplasties, bilateral carpal tunnel releases, L shoulder arhtroscopy, liver biopsy, colonoscopy, bilateral cataract removals/lens implants. Past Anesthesia/Blood Transfusion Reactions: No Reported Reaction Additional Past Anesthesia/Blood Transfusion Reaction / Comment(s): hx: blood transfusions no reaction Smoking Status: Never smoker - Past Family History Mother Family Medical History: Diabetes Mellitus Additional Family Medical History / Comment(s): Mother from diabetic complications at the age of 72 yrs. Father Family Medical History: Myocardial Infarction (MS) Additional Family Medical History / Comment(s): Father of a massive MS at the age of 72 yrs. General Exam Limitations: no limitations General appearance: alert, in no apparent distress Head exam: Present: normocephalic, other (Patient has left frontal/temporal and left facial swelling and some tenderness. No obvious deformity.) Eye exam: Present: PERRL, EOMI, periorbital swelling, periorbital tenderness. Absent: scleral icterus, conjunctival injection ENT exam: Present: normal oropharynx, TM's normal bilaterally Neck exam: Present: normal inspection. Absent: tenderness Respiratory exam: Present: normal lung sounds bilaterally. Absent: respiratory distress, wheezes, rales, rhonchi, stridor, chest wall tenderness, accessory muscle use Cardiovascular Exam: Present: regular rate, normal rhythm, normal heart sounds. Absent: systolic murmur, diastolic murmur, rubs, gallop GI/Abdominal exam: Present: soft. Absent: distended, tenderness, guarding, rebound, rigid, mass Extremities exam: Present: normal inspection, normal capillary refill. Absent: pedal edema, calf tenderness Back exam: Present: normal inspection. Absent: vertebral tenderness Neurological exam: Present: alert, CN II-XII intact. Absent: motor sensory deficit Skin exam: Present: warm, dry, intact, other (Ecchymosis left face) Course Vital Signs 10/22/23 10/23/23 23:19 02:22 Temperature 97.6 F 97.8 F Pulse Rate 75 66 Respiratory 18 18 Rate Blood Pressure 159/85 177/86 O2 Sat by Pulse 99 Oximetry Medical Decision Making - Medical Decision Making The patient had CT of the brain and C-spine that I interpreted as showing presence of orbital floor fracture. There does not appear to be entrapment. There is no intracranial hemorrhage or cervical spine fracture. The patient had chest x-ray that I interpreted as negative for acute bony injury or pneumothorax. No infiltrate. The patient had pelvis x-ray that I interpreted as negative for acute fracture. Was pt. sent in by a medical professional or institution (, [facility], [facility], urgent care, hospital, or [facility]...) When possible be specific @ -[No] Did you speak to anyone other than the patient for history (EMS, parent, family, police, friend...)? What history was obtained from this source @ -[Family did give history Did you review nursing and triage notes (agree or disagree)? Why? @ -[I reviewed and agree with nursing and triage notes] Were old charts reviewed (outside hosp., previous admission, EMS record, old EKG, old radiological studies, urgent care reports/EKG's, [facility] records)? Report findings @ -[No old charts were reviewed] Differential Diagnosis (chest pain, altered mental status, abdominal pain women, abdominal pain men, vaginal bleeding, weakness, fever, dyspnea, syncope, headache, dizziness, GI bleed, back pain, seizure, CVA, palpatations, mental health, musculoskeletal)? @ -[Differential Musculoskeletal Muscular strain, contusion, ligament sprain, fracture, arthritis, septic arthritis, bursitis, cellulitis, muscle spasm, nerve compression, DVT, arterial occlusion, herpes zoster, electrolyte abnormality, tumor.... This is not meant t o be in all inclusive list EKG interpreted by me (3pts min.). @ -[As above] X-rays interpreted by me (1pt min.). @ -[I interpreted as above CT interpreted by me (1pt min.). @ -[I interpreted as above U/S interpreted by me (1pt. min.). @ -[None done] What testing was considered but not performed or refused? (CT, X-rays, U/S, labs)? Why? @ -[None] What meds were considered but not given or refused? Why? @ -[None] Did you discuss the management of the patient with other professionals (fiona luna iyoanna Barrera, [facility], [facility], lab, RT, psych nurse, social studies teacher, bagel maker, teacher, sales and service officer, foster care case manager)? Give summary @ -[No] Was smoking cessation discussed for >3mins.? @ -[No] Was critical care preformed (if so, how long)? @ -[No] Were there social determinants of health that impacted care today? How? (Homelessness, low income, unemployed, alcoholism, drug addiction, transportation, low edu. Level, literacy, decrease access to med. care, snf, rehab)? @ -[No] Was there de-escalation of care discussed even if they declined (Discuss DNR or withdrawal of care, Hospice)? DNR status @ -[No] What co-morbidities impacted this encounter? (DM, HTN, Smoking, COPD, CAD, Cancer, CVA, ARF, Chemo, Hep., AIDS, mental health diagnosis, sleep apnea, morbid obesity)? @ -[None] Was patient admitted / discharged? Hospital course, mention meds given and route, prescriptions, significant lab abnormalities, going to OR and other pertinent info. @ -[Patient is 68-year-old woman here to have evaluation after fall on stairs. She does have left orbital floor fracture but no evidence of entrapment. At this point the patient does want to go home. Discussed appropriate further care and follow-up as well as return parameters. Undiagnosed new problem with uncertain prognosis? @ -[No] Drug Therapy requiring intensive monitoring for toxicity (Heparin, Nitro, Insulin, Cardizem)? @ -[No] Were any procedures done? @ -[No] Diagnosis/symptom? @ -[Acute fall Acute closed head injury Acute orbital fracture Acute, or Chronic, or Acute on Chronic? @ -[Acute Uncomplicated (without systemic symptoms) or Complicated (systemic symptoms)? @ -[Uncomplicated Side effects of treatment? @ -[No] Exacerbation, Progression, or Severe Exacerbation? @ -[No] Poses a threat to life or bodily function? How? (Chest pain, USA, MS, pneumonia, PE, COPD, DKA, ARF, appy, cholecystitis, CVA, Diverticulitis, Homicidal, Suicidal, threat to staff... and all critical care pts) @ -[There is low threat but does require further follow-up - Lab Data Result diagrams: 10/22/23 23:30 10/22/23 23:30 Lab Results 10/22/23 10/22/23 10/22/23 Range/Units 23:20 23:21 23:26 WBC (3.8-10.6) k/uL RBC (3.80-5.40) m/uL Hgb (11.4-16.0) gm/dL Hct (34.0-46.0) % MCV (80.0-100.0) fL MCH (25.0-35.0) pg MCHC (31.0-37.0) g/dL RDW (11.5-15.5) % Plt Count (150-450) k/uL MPV Neutrophils % % Lymphocytes % % Monocytes % % Eosinophils % % Basophils % % Neutrophils # (1.3-7.7) k/uL Lymphocytes # (1.0-4.8) k/uL Monocytes # (0-1.0) k/uL Eosinophils # (0-0.7) k/uL Basophils # (0-0.2) k/uL Hypochromasia PT (10.0-12.5) sec INR (<1.2) APTT (22.0-30.0) sec Sodium (137-145) mmol/L Potassium (3.5-5.1) mmol/L Chloride (98-107) mmol/L Carbon Dioxide (22-30) mmol/L Anion Gap mmol/L BUN (7-17) mg/dL Creatinine (0.52-1.04) mg/dL Est GFR (CKD-EPI)AfAm (>60 ml/min/1.73 sqM) Est GFR (CKD-EPI)NonAf (>60 ml/min/1.73 sqM) Glucose (74-99) mg/dL POC Glucose (mg/dL) 192 H (70-110) mg/dL POC Glu Trim Die Maker ID Meng, Amelia Plasma Lactic Acid Isaac (0.7-2.0) mmol/L Calcium (8.4-10.2) mg/dL Total Bilirubin (0.2-1.3) mg/dL AST (14-36) U/L ALT (4-34) U/L Alkaline Phosphatase (38-126) U/L Troponin I (0.000-0.034) ng/mL Total Protein (6.3-8.2) g/dL Albumin (3.5-5.0) g/dL Urine Opiates Screen (NotDetected) Ur Oxycodone Screen (NotDetected) Urine Methadone Screen (NotDetected) Ur Barbiturates Screen (NotDetected) U Tricyclic Antidepress (NotDetected) Ur Phencyclidine Scrn (NotDetected) Ur Amphetamines Screen (NotDetected) U Methamphetamines Scrn (NotDetected) U Benzodiazepines Scrn (NotDetected) Urine Cocaine Screen (NotDetected) U Marijuana (THC) Screen (NotDetected) Serum Alcohol mg/dL Blood Type O Positive Blood Type Confirm O Positive Blood Type Recheck No Previous Record Bld Type Recheck Status CABO Indicated Antibody Screen NEGATIVE Spec Expiration Date 10/25/2023232010/22/23 10/22/23 10/22/23 Range/Units 23:30 23:30 23:30 WBC 6.1 (3.8-10.6) k/uL RBC 4.30 (3.80-5.40) m/uL Hgb 12.4 (11.4-16.0) gm/dL Hct 40.2 (34.0-46.0) % MCV 93.3 (80.0-100.0) fL MCH 28.7 (25.0-35.0) pg MCHC 30.7 L (31.0-37.0) g/dL RDW 14.5 (11.5-15.5) % Plt Count 137 L (150-450) k/uL MPV 8.1 Neutrophils % 65 % Lymphocytes % 21 % Monocytes % 6 % Eosinophils % 5 % Basophils % 1 % Neutrophils # 4.0 (1.3-7.7) k/uL Lymphocytes # 1.3 (1.0-4.8) k/uL Monocytes # 0.4 (0-1.0) k/uL Eosinophils # 0.3 (0-0.7) k/uL Basophils # 0.0 (0-0.2) k/uL Hypochromasia Slight PT 13.9 H (10.0-12.5) sec INR 1.3 H (<1.2) APTT 38.5 H (22.0-30.0) sec Sodium 137 (137-145) mmol/L Potassium 4.1 (3.5-5.1) mmol/L Chloride 98 (98-107) mmol/L Carbon Dioxide 32 H (22-30) mmol/L Anion Gap 7 mmol/L BUN 20 H (7-17) mg/dL Creatinine 0.67 (0.52-1.04) mg/dL Est GFR (CKD-EPI)AfAm >90 (>60 ml/min/1.73 sqM) Est GFR (CKD-EPI)NonAf 90 (>60 ml/min/1.73 sqM) Glucose 197 H (74-99) mg/dL POC Glucose (mg/dL) (70-110) mg/dL POC Glu Trim Die Maker ID Plasma Lactic Acid Isaac (0.7-2.0) mmol/L Calcium 8.8 (8.4-10.2) mg/dL Total Bilirubin 0.6 (0.2-1.3) mg/dL AST 38 H (14-36) U/L ALT 19 (4-34) U/L Alkaline Phosphatase 148 H (38-126) U/L Troponin I (0.000-0.034) ng/mL Total Protein 7.4 (6.3-8.2) g/dL Albumin 4.1 (3.5-5.0) g/dL Urine Opiates Screen (NotDetected) Ur Oxycodone Screen (NotDetected) Urine Methadone Screen (NotDetected) Ur Barbiturates Screen (NotDetected) U Tricyclic Antidepress (NotDetected) Ur Phencyclidine Scrn (NotDetected) Ur Amphetamines Screen (NotDetected) U Methamphetamines Scrn (NotDetected) U Benzodiazepines Scrn (NotDetected) Urine Cocaine Screen (NotDetected) U Marijuana (THC) Screen (NotDetected) Serum Alcohol <10 mg/dL Blood Type Blood Type Confirm Blood Type Recheck Bld Type Recheck Status Antibody Screen Spec Expiration Date 10/22/23 10/22/23 10/23/23 Range/Units 23:30 23:30 01:13 WBC (3.8-10.6) k/uL RBC (3.80-5.40) m/uL Hgb (11.4-16.0) gm/dL Hct (34.0-46.0) % MCV (80.0-100.0) fL MCH (25.0-35.0) pg MCHC (31.0-37.0) g/dL RDW (11.5-15.5) % Plt Count (150-450) k/uL MPV Neutrophils % % Lymphocytes % % Monocytes % % Eosinophils % % Basophils % % Neutrophils # (1.3-7.7) k/uL Lymphocytes # (1.0-4.8) k/uL Monocytes # (0-1.0) k/uL Eosinophils # (0-0.7) k/uL Basophils # (0-0.2) k/uL Hypochromasia PT (10.0-12.5) sec INR (<1.2) APTT (22.0-30.0) sec Sodium (137-145) mmol/L Potassium (3.5-5.1) mmol/L Chloride (98-107) mmol/L Carbon Dioxide (22-30) mmol/L Anion Gap mmol/L BUN (7-17) mg/dL Creatinine (0.52-1.04) mg/dL Est GFR (CKD-EPI)AfAm (>60 ml/min/1.73 sqM) Est GFR (CKD-EPI)NonAf (>60 ml/min/1.73 sqM) Glucose (74-99) mg/dL POC Glucose (mg/dL) 226 H (70-110) mg/dL POC Glu Trim Die Maker ID Vickie Weldon Plasma Lactic Acid Isaac 1.5 (0.7-2.0) mmol/L Calcium (8.4-10.2) mg/dL Total Bilirubin (0.2-1.3) mg/dL AST (14-36) U/L ALT (4-34) U/L Alkaline Phosphatase (38-126) U/L Troponin I <0.012 (0.000-0.034) ng/mL Total Protein (6.3-8.2) g/dL Albumin (3.5-5.0) g/dL Urine Opiates Screen (NotDetected) Ur Oxycodone Screen (NotDetected) Urine Methadone Screen (NotDetected) Ur Barbiturates Screen (NotDetected) U Tricyclic Antidepress (NotDetected) Ur Phencyclidine Scrn (NotDetected) Ur Amphetamines Screen (NotDetected) U Methamphetamines Scrn (NotDetected) U Benzodiazepines Scrn (NotDetected) Urine Cocaine Screen (NotDetected) U Marijuana (THC) Screen (NotDetected) Serum Alcohol mg/dL Blood Type Blood Type Confirm Blood Type Recheck Bld Type Recheck Status Antibody Screen Spec Expiration Date 10/23/23 Range/Units 01:23 WBC (3.8-10.6) k/uL RBC (3.80-5.40) m/uL Hgb (11.4-16.0) gm/dL Hct (34.0-46.0) % MCV (80.0-100.0) fL MCH (25.0-35.0) pg MCHC (31.0-37.0) g/dL RDW (11.5-15.5) % Plt Count (150-450) k/uL MPV Neutrophils % % Lymphocytes % % Monocytes % % Eosinophils % % Basophils % % Neutrophils # (1.3-7.7) k/uL Lymphocytes # (1.0-4.8) k/uL Monocytes # (0-1.0) k/uL Eosinophils # (0-0.7) k/uL Basophils # (0-0.2) k/uL Hypochromasia PT (10.0-12.5) sec INR (<1.2) APTT (22.0-30.0) sec Sodium (137-145) mmol/L Potassium (3.5-5.1) mmol/L Chloride (98-107) mmol/L Carbon Dioxide (22-30) mmol/L Anion Gap mmol/L BUN (7-17) mg/dL Creatinine (0.52-1.04) mg/dL Est GFR (CKD-EPI)AfAm (>60 ml/min/1.73 sqM) Est GFR (CKD-EPI)NonAf (>60 ml/min/1.73 sqM) Glucose (74-99) mg/dL POC Glucose (mg/dL) (70-110) mg/dL POC Glu Trim Die Maker ID Plasma Lactic Acid Isaac (0.7-2.0) mmol/L Calcium (8.4-10.2) mg/dL Total Bilirubin (0.2-1.3) mg/dL AST (14-36) U/L ALT (4-34) U/L Alkaline Phosphatase (38-126) U/L Troponin I (0.000-0.034) ng/mL Total Protein (6.3-8.2) g/dL Albumin (3.5-5.0) g/dL Urine Opiates Screen Not Detected (NotDetected) Ur Oxycodone Screen Not Detected (NotDetected) Urine Methadone Screen Not Detected (NotDetected) Ur Barbiturates Screen Not Detected (NotDetected) U Tricyclic Antidepress Not Detected (NotDetected) Ur Phencyclidine Scrn Not Detected (NotDetected) Ur Amphetamines Screen Not Detected (NotDetected) U Methamphetamines Scrn Not Detected (NotDetected) U Benzodiazepines Scrn Not Detected (NotDetected) Urine Cocaine Screen Not Detected (NotDetected) U Marijuana (THC) Screen Not Detected (NotDetected) Serum Alcohol mg/dL Blood Type Blood Type Confirm Blood Type Recheck Bld Type Recheck Status Antibody Screen Spec Expiration Date - EKG Data -: EKG Interpreted by De EKG shows normal: sinus rhythm, axis (Normal), intervals (IL interval 232 ms, consistent with first-degree AV block.), QRS complexes (Low voltage QRS co mplex), ST-T waves (Normal) Rate: normal (Rate 73 bpm) Disposition Clinical Impression: Fall, Orbital floor fracture, Facial contusion Disposition: HOME SELF-CARE Condition: Good Instructions (If sedation given, give patient instructions): Facial Fracture (ED), Fall Prevention for Older Adults (ED) Prescriptions: Cephalexin [Keflex] 500 mg PO Q6HR #28 cap HYDROcodone/APAP 5-325MG [[place] 5-325] 1 tab PO Q4HR PRN 3 Days #18 tab PRN Reason: Pain Is patient prescribed a controlled substance at d/c from ED?: Yes When asked, does pt state using other controlled substances?: No If prescribed controlled substance>3 days was MAPS reviewed?: Prescribed <3 Days If opioid is for acute pain is fill amount 7 days or less?: Yes If Rx opioid, was Start Talking consent form obtained?: Yes Referrals: Katarzyna Roger MD [Primary Care Provider] - 1-2 days Jatin Cummings MD [STAFF PHYSICIAN] - 1-2 days
[2023-10-23 01:14] LABS: Glucose,Whole Blood 226 mg/dL (70-110)
[2023-10-23] MEDS: MORPHINE SULFATE 4 MG/ML SYRINGE IV STA (01:14)
[2023-10-23] MEDS: ONDANSETRON 4 MG/2 ML VIAL IVP STA (01:16)
[2023-10-23] MEDS: DIPH,PERTUS(ACELL)TETVAC-LF 0.5 ML VIAL IM ONE (01:21)
[2023-10-23 01:52] LABS: Amphetamine Screen,Urine Not Detected (NotDetected); Barbiturate Screen,Urine Not Detected (NotDetected); Benzodiazepines Screen,Urine Not Detected (NotDetected); Cocaine Screen,Urine Not Detected (NotDetected); Methadone Screen, Urine Not Detected (NotDetected); Opiate Screen,Urine Not Detected (NotDetected); Oxycodone Screen, Urine Not Detected (NotDetected); Phencyclidine Screen,Urine Not Detected (NotDetected); Tricyclic Antidepressant,Urine Not Detected (NotDetected); Urn Cannabinoid Scrn Not Detected (NotDetected)
[2023-10-23 02:47] VITALS: BP 177/86; PULSE 66; TEMP 97.8
== END 2023-10-23 01:59 | disposition home or self-care (01) ==
LOC: EC 23:17
DX: S02.32XA Fracture of orbital floor, left side, initial encounter for closed fracture (principal); S00.83XA Contusion of other part of head, initial encounter; Z88.0 Allergy status to penicillin; Z88.1 Allergy status to other antibiotic agents; Z91.09 Other allergy status, other than to drugs and biological substances; W10.9XXA Fall (on) (from) unspecified stairs and steps, initial encounter
CPT/HCPCS: 96365 ×2; 96375 ×2; 99284 ×2; 36415 ×2; 93005; 86900; 86901; 80053; 83605; 84484; 85025; 85610; 85730; 86850; 80306; 72170; 71045; 72125; 70450; G0390; G0480; J2405; J0690; 80320

== ENCOUNTER → 2023-12-19 | Outpatient (CLI) | payer MEDICARE ==
[2023-12-19 14:01] LABS: African American GFR (CKD) >90 (>60 ml/min/1.73 sqM); Blood Urea Nitrogen 15 mg/dL (7-17); Non-African American GFR(CKD) >90 (>60 ml/min/1.73 sqM)
--- NOTE | 2023-12-19 15:53 | CT ---
EXAMINATION TYPE: CT abdomen pelvis w con DATE OF EXAM: 12/19/2023 COMPARISON: CT chest abdomen and pelvis dated 07/22/2021 HISTORY: Follicular lymphoma. CT DLP: 2364.0 mGycm Automated exposure control for dose reduction was used. TECHNIQUE: Helical acquisition of images was performed from the lung bases through the pelvis. CONTRAST: Performed with Oral Contrast and with IV Contrast, patient injected with 100 ml mL of Isovue 300. FINDINGS: The lung bases are clear. There is a stable 15 mm granuloma in the left lingula There is surgical absence of the gallbladder.. There is no biliary ductal dilatation. There is ill-defined 2.8 cm mass in the posterior segment of the right lobe of the liver which is not clearly seen on the prior study however this most likely represents a benign hemangioma. MRI of the liver is recommended for further evaluation. There is no solid renal mass or hydronephrosis and there is homogeneous contrast enhancement of the r enal parenchyma. The caliber the abdominal aorta is normal is no retroperitoneal adenopathy or hemorr rachell. The bowel loops are normal in caliber and there is no evidence of dilatation or obstruction. No infla mmatory changes are identified in the bowel wall or mesentery. There is no free intraperitoneal air or fluid. No pelvic mass, free fluid, abscess or adenopathy. The osseous structures and soft tissues are intact. IMPRESSION: 2.8 cm ill-defined mass in the posterior segment right lobe liver which cannot be characterized with certainty but most likely represents a hemangioma. It was not seen on the prior studies. MRI of the l iver is recommended to further characterize.
== END | disposition home or self-care (01) ==
LOC: RADCTMAIN 12:36
PROVIDERS: ATTEND Internal Medicine Hematology & Oncology
DX: C82.03 Follicular lymphoma grade I, intra-abdominal lymph nodes (principal); E61.1 Iron deficiency; K74.60 Unspecified cirrhosis of liver; K76.0 Fatty (change of) liver, not elsewhere classified
CPT/HCPCS: 82565; 84520; 74177; 36415; Q9967

== ENCOUNTER → 2024-02-04 | Outpatient (CLI) | payer MEDICARE ==
--- NOTE | 2024-02-04 17:20 | MR ---
EXAMINATION TYPE: MR abdomen wo/w con DATE OF EXAM: 02/04/2024 9:19 AM INDICATION: Patient age:Female; 68 years old; Reason for study: C82.03 FOLLICULAR LYMPHOMA GRADE I, INTRA-ABDOMINA; [facility]. COMPARISON: CT abdomen and pelvis 12/19/2023 TECHNIQUE: Multiplanar multi-sequence imaging was performed without and with IV contrast. The patien t was given 9 ccs of Gadavist intravenously and dynamic imaging was performed. Post IV contrast subtr action images were also submitted for review. FINDINGS: LOWER CHEST: Mild cardiomegaly. The visualized lower lungs are grossly clear. ABDOMEN Liver: Noncirrhotic morphology. No fatty infiltration. Segment 5 hypointense T1/hyperintense T2 signa l 2.4 cm lesion. (Series 701, image 25). This demonstrates peripheral nodular discontinuous enhanceme nt with near-complete centripetal fill on delayed imaging. Demonstrates hyperintensity on diffusion w eighted imaging and ADC mapping. Gallbladder and Bile ducts: Gallbladder is surgically absent. No biliary ductal dilatation. Pancreas: Unremarkable. Spleen: Unremarkable. Adrenal glands: Unremarkable. Kidneys: Unremarkable. Stomach and Bowel: No evidence for obstruction. Distal colonic diverticulosis.. Peritoneum: No evidence of pneumoperitoneum, free fluid, or adenopathy. Vasculature: Unremarkable. No aortic aneurysm. Abdominal wall: Unremarkable. Musculoskeletal: The osseous structures appear intact. Grade 1 anterolisthesis of L4 on L5 on the loc alizer images. IMPRESSION: Right hepatic lobe 2.4 cm lesion with MRI characteristics consistent with a benign hepatic hemangioma .
== END | disposition home or self-care (01) ==
LOC: MERGE 12-26 14:00 → RADMRIMAIN 07:57
PROVIDERS: ATTEND Internal Medicine Hematology & Oncology
DX: C82.03 Follicular lymphoma grade I, intra-abdominal lymph nodes
CPT/HCPCS: 74183